=== PATIENT | male | born 1965 | race Caucasian/White ===

== ENCOUNTER 2024-07-30 14:32 | Inpatient (IN) | payer BC, SELFPAY ==
[2024-07-30 12:08] VITALS: BP 154/90
--- NOTE | 2024-07-30 12:33 | ED.GENMED ---
History of Present Illness
<Aurea Sanches PA-C - Last Filed: 07/30/24 14:39>
General
Chief Complaint: Skin Problem
Source: patient
Time Seen by Provider: 07/30/24 12:15
History of Present Illness
History of Present Illness:
58yoM with a history of renal cell carcinoma s/p partial L nephrectomy in 2021 currently in remission presenting for evaluation of right leg redness. Patient started to develop chills 3 days ago and spiked a fever of 102. The symptoms continued
the next day. He denies any fevers over the past 48 hours. He noticed some erythema to his right groin late yesterday evening. He then noticed new redness to the right lower leg about 2 to 3 hours ago which seems to be gradually worsening. He
was seen at his PCP office this morning for evaluation and he was sent to the ED for evaluation. Patient reports pain in the right leg. No chest pain or shortness of breath. Of note, patient underwent a right inguinal lymph node excisional biopsy
in May 2023. He developed a postoperative fluid collection which required drain placement.
Phy Exam
<Aurea Sanches PA-C - Last Filed: 07/30/24 14:39>
General Physical Exam
General Presentation: well appearing and no apparent distress
General age: appears stated age
General Skin: warm and dry
General Habitus: normal
General Mental: alert
[place] Coma Scale
Eye Opening: Spontaneous
Verbal Response: Oriented
Motor Response: Obeys Commands
GCS Total Score: 15
Musculoskeletal Exam
Musculoskeletal Exam: full ROM
Skin Exam
Skin Exam: warm/dry and erythema (Erythema noted to the R inner thigh which extends into the lower leg. Circumferential erythema and warmth to the calf. No palpable fluid collection or fluctuance in the groin. No crepitus or pain out of proportion. )
Psychiatric Exam
Psychiatric Exam: normal mood/affect
Course
<Aurea Sanches PA-C - Last Filed: 07/30/24 14:39>
Orders/Labs/Results
Orders:
Orders
07/30/24 12:31
Venous Doppler Lwr Ext Rt [US Periph Venous LOWER Ext RT] Urgent
Comment:
Reason For Exam: R leg pain, redness
07/30/24 12:35
Complete Blood Count/With Diff Urgent
Comprehensive Metabolic Panel Urgent
Lactate Level [Lactic Acid] Urgent
PTT Urgent
Prothrombin Time Urgent
07/30/24 13:31
Piperacillin/Tazo 3.375 Gram [Zosyn] 3.375 gram in 50 ml IV NOW
07/30/24 13:40
Vancomycin [Vancocin] 2,000 mg 0.9% Sodium Chloride 500 ml [Nss] 500 ml IV NOW
07/30/24 13:57
Admit/Transfer Patient As Directed
Co-Sign Provider:
Level of Care: Inpatient admission
Assign to:: Medical/Surgical
Physician / Group: [email or web address]
Diagnosis: Prgressive cellultis of Rt Pawel complicated by lyphangitis
Reason for Hospitalization: Prgressive cellultis of Rt Pawel complicated by lyphangitis
Expected length of stay greater than two midnights?: Yes
ELOS- Estimated Length of Stay in days: 3
I certify the patient meets the requirements for IP care: Yes
07/30/24 13:59
Code Status As Directed
Resuscitation Status: Full Code
Abnormal Lab Results
07/30/24
12:35
RBC 4.23 L 10^6/uL
(4.70-6.10)
Hct 36.4 L %
(39.0-52.0)
MPV 10.9 H fL
(7.4-10.4)
Abs Immat Gran (auto) 0.1 H 10^3/uL
(0-0.05)
Absolute Lymphs (auto) 0.4 L 10^3/uL
(1.2-3.4)
Immature Gran % 0.9 H %
(0-0.5)
Neutrophils % 83.4 H %
(42.2-75.2)
Lymphocytes % 6.2 L %
(20.5-51.1)
APTT 39.6 H Sec
(23.4-35.0)
Sodium 126 L mmol/L
(135-145)
Chloride 93 L mmol/L
(98-107)
BUN 33 H mg/dl
(9-20)
Glucose 108 H mg/dl
(70-99)
Calcium 7.9 L mg/dl
(8.4-10.2)
AST 64 H U/L
(17-59)
Alkaline Phosphatase 198 H U/L
(38-126)
Total Protein 6.1 L g/dl
(6.3-8.2)
Albumin 3.1 L g/dl
(3.5-5.0)
07/30/24 12:35
07/30/24 12:35
Vital Signs
Initial and Last Documented VS:
Initial Vital Signs
Temp Pulse Resp BP Pulse Ox
98.1 F 84 16 154/90 98
07/30/24 12:08 07/30/24 12:08 07/30/24 12:08 07/30/24 12:08 07/30/24 12:08
Last Documented Vital Signs
Temp Pulse Resp BP Pulse Ox
98.4 F 85 17 151/94 99
07/30/24 14:00 07/30/24 14:00 07/30/24 14:00 07/30/24 14:00 07/30/24 14:00
<Babar Andrew MD - Last Filed: 07/30/24 13:36>
Orders/Labs/Results
Orders:
Orders
07/30/24 12:31
Venous Doppler Lwr Ext Rt [US Periph Venous LOWER Ext RT] Urgent
Comment:
Reason For Exam: R leg pain, redness
07/30/24 12:35
Complete Blood Count/With Diff Urgent
Comprehensive Metabolic Panel Urgent
Lactate Level [Lactic Acid] Urgent
PTT Urgent
Prothrombin Time Urgent
07/30/24 13:31
Piperacillin/Tazo 3.375 Gram [Zosyn] 3.375 gram in 50 ml IV NOW
07/30/24 13:40
Vancomycin [Vancocin] 2,000 mg 0.9% Sodium Chloride 500 ml [Nss] 500 ml IV NOW
07/30/24 13:57
Admit/Transfer Patient As Directed
Co-Sign Provider:
Level of Care: Inpatient admission
Assign to:: Medical/Surgical
Physician / Group: [email or web address]
Diagnosis: Prgressive cellultis of Rt Pawel complicated by lyphangitis
Reason for Hospitalization: Prgressive cellultis of Rt Pawel complicated by lyphangitis
Expected length of stay greater than two midnights?: Yes
ELOS- Estimated Length of Stay in days: 3
I certify the patient meets the requirements for IP care: Yes
07/30/24 13:59
Code Status As Directed
Resuscitation Status: Full Code
Abnormal Lab Results
07/30/24
12:35
RBC 4.23 L 10^6/uL
(4.70-6.10)
Hct 36.4 L %
(39.0-52.0)
MPV 10.9 H fL
(7.4-10.4)
Abs Immat Gran (auto) 0.1 H 10^3/uL
(0-0.05)
Absolute Lymphs (auto) 0.4 L 10^3/uL
(1.2-3.4)
Immature Gran % 0.9 H %
(0-0.5)
Neutrophils % 83.4 H %
(42.2-75.2)
Lymphocytes % 6.2 L %
(20.5-51.1)
APTT 39.6 H Sec
(23.4-35.0)
Sodium 126 L mmol/L
(135-145)
Chloride 93 L mmol/L
(98-107)
BUN 33 H mg/dl
(9-20)
Glucose 108 H mg/dl
(70-99)
Calcium 7.9 L mg/dl
(8.4-10.2)
AST 64 H U/L
(17-59)
Alkaline Phosphatase 198 H U/L
(38-126)
Total Protein 6.1 L g/dl
(6.3-8.2)
Albumin 3.1 L g/dl
(3.5-5.0)
07/30/24 12:35
07/30/24 12:35
Vital Signs
Initial and Last Documented VS:
Initial Vital Signs
Temp Pulse Resp BP Pulse Ox
98.1 F 84 16 154/90 98
07/30/24 12:08 07/30/24 12:08 07/30/24 12:08 07/30/24 12:08 07/30/24 12:08
Last Documented Vital Signs
Temp Pulse Resp BP Pulse Ox
98.4 F 85 17 151/94 99
07/30/24 14:00 07/30/24 14:00 07/30/24 14:00 07/30/24 14:00 07/30/24 14:00
Torrilt;Aurea Sanches PA-C - Last Filed: 07/30/24 14:39>
MDM/Problems Addressed
Differential Diagnosis Includes:
58yoM here with R groin and leg swelling. Noticed the groin redness last night which has now spread to the calf 2-3 hours prior to arrival. Fever/chills 2 days ago but none since. Hx of prior inguinal node excisional biopsy last year with postop
fluid collection requiring drain placement. Suggestion patient is afebrile and hemodynamically stable. He is well-appearing and nontoxic. There is erythema noted to the right inner thigh which extends medially into the lower leg. There is
circumferential erythema to the calf with tenderness. No fluctuance, crepitus, or pain out of proportion on exam. Differential diagnosis includes but is not limited to: Cellulitis, abscess, DVT, doubt NSTI
Initial ED plan: Check CBC, CMP, lactate, coags, and venous duplex.
<Aurea Sanches PA-C - Last Filed: 07/30/24 14:39>
*Critical Care Note
Total Time (30-74mins, 75-104mins- exclusive of procedures): Not Applicable
<Aurea Sanches PA-C - Last Filed: 07/30/24 14:39>
Update Note
Update Note:
White count and lactate are normal. Hyponatremia noted with a sodium of 126. Venous duplex is negative for DVT. No fluid collection on ultrasound but lymphadenopathy is present. Given rapid progression of erythema, IV antibiotics ordered and he
was admitted for further management.
ED Attending Note
<Aurea Sanches PA-C - Last Filed: 07/30/24 14:39>
-
Portions of this chart may have been created with voice recognition software.� Occasional wrong word or��sound alike� substitutions may have occurred due to the inherent limitations of voice recognition software.
<Babar Andrew MD - Last Filed: 07/30/24 13:36>
ED Attending Note
Patient seen and examined by attending physician: Yes
ED Attending Note:
I have seen and evaluated the patient with a occh-ir-lork encounter. I have spoken to the advance practicer provider and involved in the medical history, the physical exam, medical decision making.
Evaluation and management service: agree unless noted differently below.
Results interpretation: agree unless noted differently below.
Focused HPI: 58-year-old male with past medical history of lymphoma status post lymph node resection in the right leg with subsequent surgical site infection and wound (June 2023) who presents to the ER today for evaluation of right leg pain,
redness, swelling. Patient reports that he had a fever for 24 hours on with a Tmax of 102 �F. He says that he thought it might be a viral illness because on Thursday fever had resolved but yesterday evening he started to notice some aching
pain in his right leg and over the past 24 hours has had progression of erythema in the right leg. Initially started in the right thigh then progressed to the right lower leg. He denies any trauma. He denies any chest pain, shortness of breath.
Denies any history of DVT/PE. Denies any other complaints.
Physical exam: Awake alert, oriented. Hypertensive but otherwise normal vitals�notably afebrile. He has edema in the entire right lower extremity; he has erythema, warmth, tenderness to the touch in the right inner thigh extending from the
inguinal crease down just proximal to the knee; he has circumferential erythema from the level about the tibial tuberosity on the right leg down towards the ankle, warmth, tenderness to the touch; no crepitus in the leg, no area of fluctuance; good
palpable pulse right lower extremity
Medical Decision Makin-year-old male presents for evaluation of pain, redness, swelling right lower leg progressing over the past 24 hours�he also had a fever 2 days ago but this has since resolved. Vitals and exam as above. Labs sent off
including a CBC which showed no leukocytosis. He was sent for an ultrasound of the right lower extremity rule out DVT as well as to investigate for any signs of abscess�negative for DVT and no signs of abscess; he does have likely reactive
lymphadenopathy. Suspect likely an acute cellulitis. Given extent of the cellulitis and the relatively rapid progression we will plan to admit for treatment, will cover with IV antibiotics. Case discussed with hospitalist for admission.
Discharge Plan
Departure
Patient Disposition: Admit
Date of Disposition: 07/30/24
Time of Disposition: 13:32
Admit to doctor: Joey
Presentation/result/management discussed w/ accepting MD/DO: Hospitalist
Discharge Problem:
Cellulitis
Interventions
Interventions:
*Risk Screen - Suicide Last Done: 07/30/24 12:08
*General Assessment Last Done: 07/30/24 12:08
*Neglect/Abuse Screening Last Done: 07/30/24 12:08
ED- Fall Risk Assessment Last Done: 07/30/24 12:39
*ED COVID-19 Vaccine History Last Done: 07/30/24 12:40
ED-Skin Assessment Last Done: 07/30/24 12:40
[2024-07-30 12:39] VITALS: BMI 32.6
[2024-07-30 13:23] LABS: % Basophils 0.6 % (0-2); % Eosinophils 0.1 % (0-6); % Immature Granulocytes 0.9 % (0-0.5); % Lymphocytes 6.2 % (20.5-51.1); % Monocytes 8.8 % (1.7-9.3); % Neutrophils 83.4 % (42.2-75.2); Absolute Immature Granulocytes 0.1 10^3/uL (0-0.05); Absolute Lymphocytes 0.4 10^3/uL (1.2-3.4); Absolute Monocytes 0.6 10^3/uL (0.1-0.6); Absolute Neutrophils 5.8 10^3/uL (1.4-6.5); Hematocrit 36.4 % (39.0-52.0); Mean Corp Hgb Conc. 35.7 g/dL (33.0-37.0); Mean Corpuscular Hgb 30.7 pg (27.0-31.0); Mean Corpuscular Volume 86.1 fL (80.0-94.0); Mean Platelet Volume 10.9 fL (7.4-10.4); Nucleated Red Blood Cells % 0 % (-); Platelet Count 153 10^3/uL (130-400); Red Blood Cell Count 4.23 10^6/uL (4.70-6.10); Red Cell Dist. Width 13.1 % (11.5-14.5)
[2024-07-30 13:35] LABS: INR 1.09; PT 13.9 Sec (11.4-14.6)
[2024-07-30 13:36] LABS: APTT 39.6 Sec (23.4-35.0)
[2024-07-30 13:39] LABS: Lactic Acid 1.2 mmol/L (0.7-2.0)
[2024-07-30] MEDS: ZOSYN 50 IV (13:39)
[2024-07-30 13:40] LABS: ALT (SGPT) 32 U/L (0-50); AST (SGOT) 64 U/L (17-59); Albumin 3.1 g/dl (3.5-5.0); Alkaline Phosphatase 198 U/L (38-126); Blood Urea Nitrogen 33 mg/dl (9-20); Calcium 7.9 mg/dl (8.4-10.2); Carbon Dioxide 25 mmol/L (22-30); Chloride 93 mmol/L (98-107); Estimated Creatinine Clearance 89 ml/min; Glucose 108 mg/dl (70-99); Potassium 4.1 mmol/L (3.5-5.1); Sodium 126 mmol/L (135-145); Total Bilirubin 0.7 mg/dl (0.2-1.3); Total Protein 6.1 g/dl (6.3-8.2); eGFR > 60.00
--- NOTE | 2024-07-30 13:45 | HPS.HSE ---
Family Physician
-
Family Physician: Jairo Mcneill
Chief Complaint
-
right leg redness
History of Present Illness
58M HX RCCa s/p partial Lt necrectomy, preserved renal function seen at ER for evalaution of Rt Leg redness.
- also noticed some erythema and pain to his right groin late yesterday evening and progressive worsening
- associated with chills 3 days ago and spiked a fever of 102.
- No fever for last 48Hrs
seen at his PCP office this morning for evaluation and he was sent to the ED for evaluation.
Of note, s/p right inguinal lymph node excisional biopsy in May 2023.
He developed a postoperative fluid collection which required drain placement.
Medical History
Past Medical History
Past Medical History: Reports Cancer (Renl cell CA s/p partial Lt nephrectomy 2021 )
Past Surgical History: Reports Other (s/p partial Lt nephrectomy 2021 )
Social History
Tobacco: Non-smoker
Alcohol: None
Family History
Family History: Not pertinent
Allergies / Home Medications
Allergies reflects when Allergies were last updated in [facility].
Home Medications with original date entered in [facility]
Allergy/Medication List:
Allergies
Allergy/AdvReac Type Severity Reaction Status Date / Time
No Known Allergies Allergy Verified 07/30/24 12:08
Home Medications
acetaminophen 325 mg tablet 650 mg (2 x 325 mg) PO Q6HPRN PRN mild pain #14 tabs 05/28/23
furosemide 20 mg tablet (Lasix) 20 mg PO BID 07/30/24
Review of Systems
-
Constitutional: Reports No Symptoms
EENT: Reports No Symptoms
Respiratory: Reports No Symptoms
Cardiac: Reports No Symptoms
Abdomen/GI: Reports No Symptoms
: Reports No Symptoms
Musculoskeletal: Reports See HPI
Skin: Reports See HPI
Neurological: Reports No Symptoms
Endocrine: Reports No Symptoms
Hematologic/Lymphatic: Reports No Symptoms
Psych: Reports No Symptoms
Physical Exam
Vital Signs
Vital Signs
Temp Pulse Resp BP Pulse Ox
98.1 F 84 16 154/90 98
07/30/24 12:08 07/30/24 12:08 07/30/24 12:08 07/30/24 12:08 07/30/24 12:08
Physical Exam
Skin: Other (Erythema @ R inner thigh which extends into the lower leg. Circumferential erythema with warmth to the calf. No palpable fluid collection or fluctuance in the groin. No crepitus or pain out of proportion)
Laboratory Results
-
07/30/24 12:35
07/30/24 12:35
Laboratory Results
PT 13.9 Sec (11.4-14.6) 07/30/24 12:35
INR 1.09 07/30/24 12:35
APTT 39.6 Sec (23.4-35.0) H 07/30/24 12:35
Lactic Acid 1.2 mmol/L (0.7-2.0) 07/30/24 12:35
Total Bilirubin 0.7 mg/dl (0.2-1.3) 07/30/24 12:35
AST 64 U/L (17-59) H 07/30/24 12:35
ALT 32 U/L (0-50) 07/30/24 12:35
Alkaline Phosphatase 198 U/L (38-126) H 07/30/24 12:35
Data Reviewed
-
Ultrasound: Report Reviewed by me
Lab Data: Labs Reviewed by me
Impression/Plan
-
Vital Signs
Temp Pulse Resp BP Pulse Ox
98.1 F 84 16 154/90 98
07/30/24 12:08 07/30/24 12:08 07/30/24 12:08 07/30/24 12:08 07/30/24 12:08
Laboratory Tests
07/30/24
12:35
WBC 7.0
Sodium 126 L
Chloride 93 L
BUN 33 H
Creatinine 1.0
eGFR > 60.00
Lactic Acid 1.2
Alkaline Phosphatase 198 H
Albumin 3.1 L
US Rt Pawel
1. No sonographic evidence for right lower extremity deep venous thrombosis.
2. Mild diffuse subcutaneous edema and soft tissue swelling in the right lower leg (possibly cellulitis).
3. Right inguinal lymphadenopathy. Diagnostic possibilities are (1) reactive lymphadenopathy in the setting of right lower extremity cellulitis or (2) lymphoma.
ASSESSMENT & PLAN
Progressive cellulitis of Rt Pawel complicated by lymphangitis and at risk for sepsis
Right inguinal lymphadenopathy due to reactive lymphadenopathy/
Hemodynamically stable
No fever for last 48Hrs. nl WCC
No son evidence of DVT i Rt Leg
No record prior HX MRSA in micro data
HX L/N dissection at Rt groin
- s/p first doses of IV vanco and Zosyn at ER
- switch to IV Ancef - f/u clinical response
- To consider ID consult if no clinical response
Hyponatremia on Lasix
Mild azotemia
suspect mild dehydration
HX lasix of chr intermittent Rt Leg swelling since HX L/N dissection at Rt groin
- Held Lasix
- f/u Na in AM
HX HX RCCa s/p partial Lt nephrectomy in 2021
- preserved renal function
DVT Px: LMWH
Code: Full
IP MS
[2024-07-30 14:00] VITALS: BP 151/94
[2024-07-30] MEDS: VANCOCIN 540 MG IV (14:14)
[2024-07-30 15:30] VITALS: BP 160/91
[2024-07-30 15:48] VITALS: BMI 31.2
[2024-07-30] MEDS: NSS 1000 IV (15:57)
[2024-07-30] MEDS: ANCEF 10 IV ×2 (15:58→23:54)
--- NOTE | 2024-07-30 16:37 | PTCARENOTE ---
Pt admission and assessment done after arrival to unit at aprox 1535. Pt's at bedside. IV vanco infusing through RAC. Pt admitted with cellulitis from right groin down to right ankle with significant swelling noted. Pt with 7/10 pain to the
right leg but does not want any pain medication at this time. Pt will order dinner. Advised patient to ring for any assistance.
[2024-07-30] MEDS: LOVENOX 40 MG SC (18:14)
[2024-07-30 23:00] VITALS: BP 148/94
[2024-07-31 06:00] VITALS: BMI 30.3
[2024-07-31 07:00] VITALS: BP 155/85
[2024-07-31 07:03] LABS: Hematocrit 35.4 % (39.0-52.0); Hemoglobin 12.3 g/dL (13.0-18.0); Mean Corp Hgb Conc. 34.7 g/dL (33.0-37.0); Mean Corpuscular Hgb 30.4 pg (27.0-31.0); Mean Corpuscular Volume 87.4 fL (80.0-94.0); Mean Platelet Volume 11.4 fL (7.4-10.4); Platelet Count 161 10^3/uL (130-400); Red Blood Cell Count 4.05 10^6/uL (4.70-6.10); Red Cell Dist. Width 13.2 % (11.5-14.5); White Blood Cell Count 7.9 10^3/uL (4.8-10.8)
[2024-07-31 07:32] LABS: Blood Urea Nitrogen 24 mg/dl (9-20); Calcium 7.1 mg/dl (8.4-10.2); Carbon Dioxide 21 mmol/L (22-30); Chloride 99 mmol/L (98-107); Estimated Creatinine Clearance 101 ml/min; Glucose 107 mg/dl (70-99); Potassium 3.3 mmol/L (3.5-5.1); Sodium 129 mmol/L (135-145); eGFR > 60.00
[2024-07-31 08:26] VITALS: BP 160/91
[2024-07-31] MEDS: ANCEF 10 IV ×2 (08:58→15:22)
--- NOTE | 2024-07-31 10:50 | CM ---
CM met with pt bedside
Pt resides with his spouse in a 2SH with 1STE, 13 steps up to second floor
Pt is independent with his ADLs, no DMEs
Financially secure
PCP- Jairo Mcneill
Rx- Viviana Sandhu
Discharge Disposition- home, no needs anticipated
--- NOTE | 2024-07-31 11:26 | W.PN.HOSP.TC ---
Today's Communication/Plan
-
IV abx
replete kcl
monitor Na and restart lasix in am
Assessment / Plan
Assessment / Plan
Progressive cellulitis of Rt Pawel complicated by lymphangitis
Right inguinal lymphadenopathy due to reactive lymphadenopathy/
No son evidence of DVT i Rt Leg
No record prior HX MRSA in micro data
HX L/N dissection at Rt groin
- s/p first doses of IV vanco and Zosyn at ER
- switch to IV Ancef - f/u clinical response
- Hold further IV lasix.
Hyponatremia on Lasix
Mild azotemia
suspect mild dehydration
HX lasix of chr intermittent Rt Leg swelling since HX L/N dissection at Rt groin
- Held Lasix. Na improved to 129.
- sodium improved. with hx of chronic lymphedema in RLE-DC further IVF. Restart lasix in am depending on sodium
HX HX RCCa s/p partial Lt nephrectomy in 2021
- preserved renal function
DVT Px: LMWH
Code: Full
Anticipated Discharge: > 48 hours
Subjective/Interval History
-
Date of Service: July 31, 2024
states of RLE pain
Objective Data
-
Labs:
Laboratory Results
07/31/24
06:15
WBC 7.9
Hgb 12.3 L
Hct 35.4 L
Plt Count 161
Sodium 129 L
Potassium 3.3 L
Chloride 99
Carbon Dioxide 21 L
BUN 24 H
Creatinine 0.9
Glucose 107 H
Calcium 7.1 L
Vital Signs:
Vital Signs
Temp Pulse Resp BP Pulse Ox
99.4 F 83 14 160/91 100
07/31/24 08:26 07/31/24 08:26 07/31/24 08:26 07/31/24 08:26 07/31/24 08:26
I&O
07/30/24 07/31/24 08/01/24
06:59 06:59 06:59
Intake Total 480 / 480
Output Total 3300 / 3300
Balance -2820 / -2820
Physical Exam
-
General: Well Developed and No Apparent Distress
HEENT: Normocephalic, Atraumatic and Moist Mucous Membranes
Respiratory: Clear to Auscultation
Cardiac: Regular Rhythm and S1/S2; Negative Murmur, Rub or Gallop
GI: Soft, Nontender, Nondistended and Normal Bowel Sounds; Negative Organomegaly
Rectal: Deferred by Provider
Musculoskeletal: No Clubbing, No Cyanosis and No Edema
Skin: Rash (R groin trending down to ankle. TTP. )
Neuro: Awake, Alert, Oriented, AO x 3, No Motor Deficits and Nonfocal/Grossly Intact
Psych: Calm
Data Reviewed
-
Total Time Spent with Patient (in minutes): 56
[2024-07-31] MEDS: KCL 40 MEQ PO (12:56)
[2024-07-31 15:46] VITALS: BP 139/79
[2024-07-31] MEDS: LOVENOX 40 MG SC (17:04)
[2024-07-31] MEDS: TYLENOL 650 MG PO (19:42)
[2024-07-31 23:21] VITALS: BP 141/73
[2024-08-01] MEDS: ANCEF 10 IV ×4 (00:17→23:21)
[2024-08-01 06:00] VITALS: BMI 30.5
[2024-08-01 07:41] LABS: % Basophils 0.3 % (0-2); % Eosinophils 0.2 % (0-6); % Immature Granulocytes 1.4 % (0-0.5); % Lymphocytes 5.6 % (20.5-51.1); % Monocytes 10.2 % (1.7-9.3); % Neutrophils 82.3 % (42.2-75.2); Absolute Immature Granulocytes 0.1 10^3/uL (0-0.05); Absolute Lymphocytes 0.5 10^3/uL (1.2-3.4); Absolute Neutrophils 7.8 10^3/uL (1.4-6.5); Hematocrit 37.1 % (39.0-52.0); Hemoglobin 13.4 g/dL (13.0-18.0); Mean Corp Hgb Conc. 36.1 g/dL (33.0-37.0); Mean Corpuscular Hgb 31.5 pg (27.0-31.0); Mean Corpuscular Volume 87.3 fL (80.0-94.0); Mean Platelet Volume 11.4 fL (7.4-10.4); Nucleated Red Blood Cells % 0 % (-); Platelet Count 148 10^3/uL (130-400); Red Blood Cell Count 4.25 10^6/uL (4.70-6.10); Red Cell Dist. Width 13.1 % (11.5-14.5); White Blood Cell Count 9.4 10^3/uL (4.8-10.8)
[2024-08-01 07:44] VITALS: BP 147/87
[2024-08-01] MEDS: TYLENOL 650 MG PO ×2 (08:03→21:00)
[2024-08-01 08:14] LABS: Blood Urea Nitrogen 24 mg/dl (9-20); Calcium 7.6 mg/dl (8.4-10.2); Carbon Dioxide 22 mmol/L (22-30); Chloride 98 mmol/L (98-107); Estimated Creatinine Clearance 114 ml/min; Glucose 107 mg/dl (70-99); Potassium 3.5 mmol/L (3.5-5.1); Sodium 130 mmol/L (135-145); eGFR > 60.00
[2024-08-01 15:33] VITALS: BP 162/80
--- NOTE | 2024-08-01 16:11 | CM ---
CM reviewed chart, patient remains on IV antibiotics. CM will continue to follow for all discharge planning needs.
Plan; home no needs likely.
--- NOTE | 2024-08-01 16:50 | W.PN.HOSP.TC ---
Today's Communication/Plan
-
continue Ancef
Assessment / Plan
Assessment / Plan
Progressive cellulitis of Rt Pawel complicated by lymphangitis
Right inguinal lymphadenopathy due to reactive lymphadenopathy/clonal B lymphocytes
No sono evidence of DVT i Rt Leg
No record prior HX MRSA in micro data
HX L/N dissection at Rt groin
- s/p first doses of IV vanco and Zosyn at ER
- switch to IV Ancef - f/u clinical response
- change Lasix to oral
Hyponatremia on Lasix
better Na 126-->129-->130
Mild azotemia
suspect mild dehydration
HX lasix of chr intermittent Rt Leg swelling since HX L/N dissection at Rt groin
- sodium improved. with hx of chronic lymphedema in RLE-DC further IVF.
HX HX RCCa s/p partial Lt nephrectomy in 2021
- preserved renal function
Consider ID consult pending progression
DVT Px: LMWH
Code: Full
Anticipated Discharge: 24 - 48 hours
Subjective/Interval History
-
Date of Service: August 01, 2024
Still with Rt leg pain, but pt believes improving
Objective Data
-
Labs:
Laboratory Results
08/01/24
07:00
WBC 9.4
Hgb 13.4
Hct 37.1 L
Plt Count 148
Sodium 130 L
Potassium 3.5
Chloride 98
Carbon Dioxide 22
BUN 24 H
Creatinine 0.8
Glucose 107 H
Calcium 7.6 L
Vital Signs:
Vital Signs
Temp Pulse Resp BP Pulse Ox
97.8 F 74 20 162/80 100
08/01/24 15:33 08/01/24 15:33 08/01/24 15:33 08/01/24 15:33 08/01/24 15:33
I&O
07/31/24 08/01/24 08/02/24
06:59 06:59 06:59
Intake Total 480 / 480 240 / 240
Output Total 3300 / 3300 850 / 850
Balance -2820 / -2820 -610 / -610
Review of Systems
-
History Source: Patient
Constitutional: Denies Fever
EENT: Reports No Symptoms Reported
Respiratory: Reports No Symptoms
Cardiac: Reports No Symptoms
Abdomen/GI: Reports No Symptoms
Musculoskeletal: Reports No Symptoms
Skin: Reports Rash
Physical Exam
-
General: Well Developed and No Apparent Distress
HEENT: Normocephalic, Atraumatic and Moist Mucous Membranes
Respiratory: Clear to Auscultation
Cardiac: Regular Rhythm and S1/S2; Negative Murmur, Rub or Gallop
GI: Soft, Nontender, Nondistended and Normal Bowel Sounds; Negative Organomegaly
Rectal: Deferred by Provider
Musculoskeletal: No Clubbing, No Cyanosis and No Edema
Skin: Rash (R groin trending down to ankle. TTP. )
Neuro: Awake, Alert, Oriented, AO x 3, No Motor Deficits and Nonfocal/Grossly Intact
Psych: Calm
[2024-08-01] MEDS: LASIX 20 MG PO (17:04)
[2024-08-01] MEDS: LOVENOX 40 MG SC (17:04)
[2024-08-01 18:48] LABS: Hepatitis C Antibody Negative (Negative)
[2024-08-01 23:44] VITALS: BP 124/71
[2024-08-02 06:00] VITALS: BMI 30.5
[2024-08-02 07:44] VITALS: BP 155/80
[2024-08-02] MEDS: ANCEF 10 IV ×2 (07:57→16:39)
[2024-08-02] MEDS: LASIX 20 MG PO ×2 (07:58→16:39)
[2024-08-02 08:08] LABS: % Basophils 0.6 % (0-2); % Eosinophils 0.7 % (0-6); % Immature Granulocytes 2.2 % (0-0.5); % Lymphocytes 6.6 % (20.5-51.1); % Monocytes 8.5 % (1.7-9.3); % Neutrophils 81.4 % (42.2-75.2); Absolute Basophils 0.1 10^3/uL (0-0.2); Absolute Eosinophils 0.1 10^3/uL (0-0.7); Absolute Immature Granulocytes 0.2 10^3/uL (0-0.05); Absolute Lymphocytes 0.7 10^3/uL (1.2-3.4); Absolute Monocytes 0.8 10^3/uL (0.1-0.6); Hematocrit 34.8 % (39.0-52.0); Hemoglobin 12.7 g/dL (13.0-18.0); Mean Corp Hgb Conc. 36.5 g/dL (33.0-37.0); Mean Corpuscular Hgb 32.2 pg (27.0-31.0); Mean Corpuscular Volume 88.1 fL (80.0-94.0); Mean Platelet Volume 11.7 fL (7.4-10.4); Nucleated Red Blood Cells % 0 % (-); Platelet Count 180 10^3/uL (130-400); Red Blood Cell Count 3.95 10^6/uL (4.70-6.10); Red Cell Dist. Width 13.1 % (11.5-14.5); White Blood Cell Count 9.8 10^3/uL (4.8-10.8)
[2024-08-02] MEDS: TYLENOL 650 MG PO ×2 (08:08→16:39)
[2024-08-02 08:25] LABS: Blood Urea Nitrogen 22 mg/dl (9-20); Calcium 7.4 mg/dl (8.4-10.2); Carbon Dioxide 24 mmol/L (22-30); Chloride 99 mmol/L (98-107); Estimated Creatinine Clearance > 125 ml/min; Glucose 94 mg/dl (70-99); Sodium 133 mmol/L (135-145); eGFR > 60.00
[2024-08-02 09:28] LABS: Erythrocyte Sed Rate 53 mm/hour (0-20)
--- NOTE | 2024-08-02 10:33 | CON.ID ---
Consultation
-
Date/Time Consultation Requested: August 02, 2024 0738
Date/Time Consultation Performed: August 02, 2024 1035
Requesting Provider: Dr. Jairo Rodriguez
Performing Provider: Dr. Julia Harden
Reason for Consultation: Cellulitis
Chief Complaint / Past History
Chief Complaint
Right leg redness
History of Present Illness
58-year-old male with history of CLL/SLL diagnosed by right inguinal lymph node excisional biopsy May 2023 complicated by chronic right lower extremity edema for which he wears compression stockings. On Thursday morning 07/30, his right leg looked
normal. He then went grocery shopping without wearing his compression stocking. Upon return from shopping, he noted bright erythema right lower extremity from the ankle to the leg and streaking up to right groin. Leg was very swollen. He had
subjective fevers and chills 2 days prior to the leg redness. He admits to scratching his legs often. Patient presented to the ER same day July 30. He was started on cefazolin. DVT ruled out. Patient reports that the erythema has improved.
However his leg is still swollen. No other complaints.
Past History
Additional Past Medical History:
Renal cell cancer status post partial left nephrectomy 2021
CLL/SLL, right inguinal lymph node excisional biopsy May 2023
Right lower extremity lymphedema
Allergy History:
No Known Allergies Allergy (Verified 07/30/24 12:08)
Medications Reviewed: Yes
Current Antibiotics:
cefazolin d4
Social History
Tobacco: Non-Smoker
Alcohol: None
Drug: None
Personal:
Living: With Family (and 1 dog)
Employment: Employed (IT)
Family History
Family History: Not Pertinent
Review of Systems
Review of Systems
General: Negative Change in Appetite
HEENT: Negative Sinus Problems, Headache or Pharyngitis
Cardiovascular: Negative Chest Pain or Dyspnea
Respiratory: Negative Dyspnea or Cough
Gasteroenterology: Other (no diarrhea); Negative Nausea or Vomiting
Genital / Urological: Negative Dysuria or Flank Pain
Endocrine: Negative Weakness
Neurological: Negative Headache or Dizziness
All systems: All other systems were reviewed and were negative
Vital Signs
Temp Pulse Resp BP Pulse Ox
97.8 F 77 18 155/80 100
08/02/24 07:44 08/02/24 07:44 08/02/24 07:44 08/02/24 07:44 08/02/24 07:44
Physical Exam
Physical Exam
Constitutional: No Acute Distress and Comfortable
Eyes: No Conjunctival Hemorrhage and Sclera Anicteric
Cardiovascular: Regular Rate and S1/S2
Pulmonary: Clear
Gastrointestinal: Soft, Non Tender, Non Distended and Normal Bowel Sounds
Genito-Urinary: Negative CVA Tenderness
Extremities: Edema (LLE: 3+ edema) and Erythema (patchy mild to mod erythema distal RLE and right groin, no significant warmth; + dry skin)
Musculoskeletal: Negative Spinal Tenderness
Neurological: AO x 3
Lab / Diagnostic Study Results
08/02/24 06:28
08/02/24 06:28
Abs Immat Gran (auto) 0.2 10^3/uL (0-0.05) H 08/02/24 06:28
Absolute Neuts (auto) 8.0 10^3/uL (1.4-6.5) H 08/02/24 06:28
Absolute Lymphs (auto) 0.7 10^3/uL (1.2-3.4) L 08/02/24 06:28
Absolute Monos (auto) 0.8 10^3/uL (0.1-0.6) H 08/02/24 06:28
Absolute Basos (auto) 0.1 10^3/uL (0-0.2) 08/02/24 06:28
Immature Gran % 2.2 % (0-0.5) H 08/02/24 06:28
Neutrophils % 81.4 % (42.2-75.2) H 08/02/24 06:28
Lymphocytes % 6.6 % (20.5-51.1) L 08/02/24 06:28
Monocytes % 8.5 % (1.7-9.3) 08/02/24 06:28
Eosinophils % 0.7 % (0-6) 08/02/24 06:28
Basophils % 0.6 % (0-2) 08/02/24 06:28
ESR 53 mm/hour (0-20) H 08/02/24 06:28
PT 13.9 Sec (11.4-14.6) 07/30/24 12:35
INR 1.09 07/30/24 12:35
Lactic Acid 1.2 mmol/L (0.7-2.0) 07/30/24 12:35
Assessment / Plan
# Acute RLE cellulitis
# hx RLE lymphedema due to right inguinal excisional LN biopsy (05/2023)
- Apply moisturizer
- COMPRESSION with Rodger-WRAP
- Elevate RLE
- Tomorrow, can transition cefazolin (d4) to cephalexin 1g po q8h through 08/08/24.
--- NOTE | 2024-08-02 10:56 | CM ---
Patient seen bedside.
Continue IV anbx
patient aware of CM availability should needs arise.
Plan: home no needs anticipated.
[2024-08-02] MEDS: LAC HYDRIN, AM LACTIN LOTION 1 APPLIC TOPICAL ×2 (11:42→20:57)
--- NOTE | 2024-08-02 11:57 | W.PN.HOSP.TC ---
Today's Communication/Plan
-
KCl supplement
recheck labs in AM
if cellulitis continues to improve, consider dc next 1-2 days
Assessment / Plan
Assessment / Plan
Progressive cellulitis of Rt Pawel complicated by lymphangitis
Right inguinal lymphadenopathy due to reactive lymphadenopathy/clonal B lymphocytes
No sono evidence of DVT i Rt Leg
No record prior HX MRSA in micro data
HX L/N dissection at Rt groin
- s/p first doses of IV vanco and Zosyn at ER
- switch to IV Ancef - f/u clinical response
- now on Lasix oral 20 mg bid
chronic RLE lymphedema post rt inguinal LN excision
Hyponatremia on Lasix
better Na 126-->129-->130-->133
Mild azotemia
suspect mild dehydration
HX lasix of chr intermittent Rt Leg swelling since HX L/N dissection at Rt groin
- sodium improved. with hx of chronic lymphedema in RLE-DC further IVF.
Hypokalemia from Lasix
3.3-->3.5-->3.0
will start K supplement and recheck tomorrow
HX HX RCCa s/p partial Lt nephrectomy in 2021
- preserved renal function
reviewed with Dr. Harden
DVT Px: LMWH
Code: Full
Anticipated Discharge: 24 - 48 hours
Subjective/Interval History
-
Date of Service: August 02, 2024
Still with leg pain
Objective Data
-
Labs:
Laboratory Results
08/02/24
06:28
WBC 9.8
Hgb 12.7 L
Hct 34.8 L
Plt Count 180 D
Sodium 133 L
Potassium 3.0 L
Chloride 99
Carbon Dioxide 24
BUN 22 H
Creatinine 0.7
Glucose 94
Calcium 7.4 L
Vital Signs:
Vital Signs
Temp Pulse Resp BP Pulse Ox
97.8 F 77 18 155/80 100
08/02/24 07:44 08/02/24 07:44 08/02/24 07:44 08/02/24 07:44 08/02/24 07:44
I&O
08/01/24 08/02/24 08/03/24
06:59 06:59 06:59
Intake Total 240 / 240 1080 / 1080
Output Total 850 / 850
Balance -610 / -610 1080 / 1080
Review of Systems
-
History Source: Patient
Constitutional: Denies Fever, Chills or Weakness
EENT: Reports No Symptoms Reported
Respiratory: Reports No Symptoms
Cardiac: Reports No Symptoms
Abdomen/GI: Reports No Symptoms
Musculoskeletal: Reports No Symptoms
Skin: Reports Rash
Neuro: Reports No Symptoms
Physical Exam
-
General: Well Developed and No Apparent Distress
HEENT: Normocephalic, Atraumatic and Moist Mucous Membranes
Respiratory: Clear to Auscultation
Cardiac: Regular Rhythm and S1/S2; Negative Murmur, Rub or Gallop
GI: Soft, Nontender, Nondistended and Normal Bowel Sounds; Negative Organomegaly
Rectal: Deferred by Provider
Musculoskeletal: No Clubbing, No Cyanosis and No Edema
Skin: Rash (R groin trending down to ankle. probably 25% better since yesterday)
Neuro: Awake, Alert, Oriented, AO x 3, No Motor Deficits and Nonfocal/Grossly Intact
Psych: Calm
[2024-08-02] MEDS: KCL 40 MEQ PO (12:19)
[2024-08-02 15:25] VITALS: BP 151/88
[2024-08-02] MEDS: LOVENOX 40 MG SC (16:39)
[2024-08-02] MEDS: KCL 20 MEQ PO (20:56)
[2024-08-02 23:30] VITALS: BP 148/79
[2024-08-03] MEDS: ANCEF 10 IV ×2 (00:16→07:44)
[2024-08-03] MEDS: TYLENOL 650 MG PO (00:17)
[2024-08-03 04:58] VITALS: BMI 30.6
[2024-08-03 07:26] VITALS: BP 162/86
[2024-08-03] MEDS: KCL 20 MEQ PO ×2 (07:44→20:07)
[2024-08-03] MEDS: LASIX 20 MG PO ×2 (07:44→17:19)
[2024-08-03] MEDS: LAC HYDRIN, AM LACTIN LOTION 1 APPLIC TOPICAL (07:46)
[2024-08-03 10:01] LABS: % Basophils 1.1 % (0-2); % Eosinophils 0.7 % (0-6); % Immature Granulocytes 3.4 % (0-0.5); % Lymphocytes 9.5 % (20.5-51.1); % Monocytes 6.2 % (1.7-9.3); % Neutrophils 79.1 % (42.2-75.2); Absolute Basophils 0.1 10^3/uL (0-0.2); Absolute Eosinophils 0.1 10^3/uL (0-0.7); Absolute Immature Granulocytes 0.3 10^3/uL (0-0.05); Absolute Lymphocytes 0.8 10^3/uL (1.2-3.4); Absolute Monocytes 0.5 10^3/uL (0.1-0.6); Absolute Neutrophils 6.8 10^3/uL (1.4-6.5); Hematocrit 40.1 % (39.0-52.0); Hemoglobin 13.9 g/dL (13.0-18.0); Mean Corp Hgb Conc. 34.7 g/dL (33.0-37.0); Mean Corpuscular Hgb 30.2 pg (27.0-31.0); Mean Corpuscular Volume 87.2 fL (80.0-94.0); Mean Platelet Volume 10.2 fL (7.4-10.4); Nucleated Red Blood Cells % 0 % (-); Platelet Count 324 10^3/uL (130-400); Red Cell Dist. Width 13.3 % (11.5-14.5); White Blood Cell Count 8.6 10^3/uL (4.8-10.8)
[2024-08-03 10:37] LABS: Blood Urea Nitrogen 19 mg/dl (9-20); Calcium 8.5 mg/dl (8.4-10.2); Carbon Dioxide 26 mmol/L (22-30); Chloride 100 mmol/L (98-107); Estimated Creatinine Clearance > 125 ml/min; Glucose 129 mg/dl (70-99); Sodium 137 mmol/L (135-145); eGFR > 60.00
--- NOTE | 2024-08-03 11:14 | CM ---
Patient seen bedside.
Patient stated leg looks and feels better.
Patient denies home care needs.
Plan: home no needs.
--- NOTE | 2024-08-03 12:25 | W.PN.HOSP.TC ---
Today's Communication/Plan
-
check MRSA nasal swab
continue Ancef
Assessment / Plan
Assessment / Plan
Progressive cellulitis of Rt Pawel complicated by lymphangitis
Right inguinal lymphadenopathy due to reactive lymphadenopathy/clonal B lymphocytes
No sono evidence of DVT i Rt Leg
No record prior HX MRSA in micro data
HX L/N dissection at Rt groin
- s/p first doses of IV vanco and Zosyn at ER
- switch to IV Ancef - f/u clinical response
initially greater improvement, will check MRSA nasal swab
- now back on Lasix oral 20 mg bid
chronic RLE lymphedema post rt inguinal LN excision
Hyponatremia on Lasix
better Na 126-->129-->130-->133
Mild azotemia
suspect mild dehydration
HX lasix of chr intermittent Rt Leg swelling since HX L/N dissection at Rt groin
- sodium improved. with hx of chronic lymphedema in RLE-DC further IVF.
Hypokalemia from Lasix
3.3-->3.5-->3.0-->4.0
started K supplement and is better
HX HX RCCa s/p partial Lt nephrectomy in 2021
- preserved renal function
reviewed with Dr. Harden 08/03
DVT Px: LMWH
Code: Full
Anticipated Discharge: 24 - 48 hours
Subjective/Interval History
-
Date of Service: August 03, 2024
Overall feeling better, but leg remains warm and tender
Objective Data
-
Labs:
Laboratory Results
08/03/24
09:18
WBC 8.6
Hgb 13.9
Hct 40.1
Plt Count 324 D
Sodium 137
Potassium 4.0 D
Chloride 100
Carbon Dioxide 26
BUN 19
Creatinine 0.7
Glucose 129 H
Calcium 8.5
Vital Signs:
Vital Signs
Temp Pulse Resp BP Pulse Ox
97.7 F 70 20 162/86 99
08/03/24 07:26 08/03/24 07:44 08/03/24 07:26 08/03/24 07:44 08/03/24 07:26
I&O
08/02/24 08/03/24 08/04/24
06:59 06:59 06:59
Intake Total 1080 / 1080 840 / 840
Balance 1080 / 1080 840 / 840
Review of Systems
-
History Source: Patient
Constitutional: Denies Fever, Chills or Weakness
EENT: Reports No Symptoms Reported
Respiratory: Reports No Symptoms
Cardiac: Reports No Symptoms
Abdomen/GI: Reports No Symptoms
Musculoskeletal: Reports No Symptoms
Skin: Reports Rash
Neuro: Reports No Symptoms
Physical Exam
-
General: Well Developed and No Apparent Distress
HEENT: Normocephalic, Atraumatic and Moist Mucous Membranes
Respiratory: Clear to Auscultation
Cardiac: Regular Rhythm and S1/S2; Negative Murmur, Rub or Gallop
GI: Soft, Nontender, Nondistended and Normal Bowel Sounds; Negative Organomegaly
Rectal: Deferred by Provider
Musculoskeletal: No Clubbing, No Cyanosis and No Edema
Skin: Rash (R groin trending down to ankle. minimal change past 24 hrs, certainly not worse)
Neuro: Awake, Alert, Oriented, AO x 3, No Motor Deficits and Nonfocal/Grossly Intact
Psych: Calm
[2024-08-03 15:01] VITALS: BP 140/79
--- NOTE | 2024-08-03 15:53 | W.PN.ID1 ---
Date of Service
Date of Service: August 03, 2024
Today's Communication
Change cefazolin to ceftriaxone.
Assessment / Plan
# Acute RLE cellulitis
# hx RLE lymphedema due to right inguinal excisional LN biopsy (05/2023)
- Leg with increased erythema with onset of RODGER-WRAP Compression.
- Hold Rodger-WRAP compression for now.
- Elevate RLE
- Suspect Streptococcal cellulitis.
Replace cefazolin with ceftriaxone.
- Follow clinically.
#Additional Past Medical History:
Renal cell cancer status post partial left nephrectomy 2021
CLL/SLL, right inguinal lymph node excisional biopsy May 2023
Right lower extremity lymphedema
Chief Complaint
-: Cellulitis
Subjective / Review of Systems
Leg better this am before RODGER-WRAP but got redder with compression.
Vital Signs / Physical Exam
Vital Signs
Vital Signs
Temp Pulse Resp BP Pulse Ox
97.8 F 74 17 140/79 99
08/03/24 15:01 08/03/24 15:01 08/03/24 15:01 08/03/24 15:01 08/03/24 15:01
Physical Exam
Constitutional: No Acute Distress and Comfortable
Extremities: Edema (RLE decreased edema) and Erythema (Erythema appears increased today ankle with streaking to medial groin, mildly warm)
Objective Data
Lab Data
Lab Results
08/03/24 09:18
08/03/24 09:18
ESR 53 mm/hour (0-20) H 08/02/24 06:28
PT 13.9 Sec (11.4-14.6) 07/30/24 12:35
INR 1.09 07/30/24 12:35
APTT 39.6 Sec (23.4-35.0) H 07/30/24 12:35
Estimated Creat Clear > 125 ml/min 08/03/24 09:18
Lactic Acid 1.2 mmol/L (0.7-2.0) 07/30/24 12:35
Total Bilirubin 0.7 mg/dl (0.2-1.3) 07/30/24 12:35
AST 64 U/L (17-59) H 07/30/24 12:35
ALT 32 U/L (0-50) 07/30/24 12:35
Alkaline Phosphatase 198 U/L (38-126) H 07/30/24 12:35
Most recent labs reviewed.
Micro Results:
08/03/24 14:35 MRSA Screen - Pending
Nose
[2024-08-03] MEDS: LOVENOX 40 MG SC (17:18)
[2024-08-03] MEDS: ROCEPHIN 2000 MG IV (17:19)
[2024-08-03] MEDS: STERILE WATER FOR INJECTION 20 ML IV (17:19)
[2024-08-03 23:20] VITALS: BP 159/89
[2024-08-04 05:30] VITALS: BMI 30.6
[2024-08-04 07:50] LABS: % Basophils 0.9 % (0-2); % Eosinophils 1.5 % (0-6); % Immature Granulocytes 4.6 % (0-0.5); % Lymphocytes 10.2 % (20.5-51.1); % Monocytes 7.5 % (1.7-9.3); % Neutrophils 75.3 % (42.2-75.2); Absolute Basophils 0.1 10^3/uL (0-0.2); Absolute Eosinophils 0.1 10^3/uL (0-0.7); Absolute Immature Granulocytes 0.4 10^3/uL (0-0.05); Absolute Lymphocytes 0.9 10^3/uL (1.2-3.4); Absolute Monocytes 0.7 10^3/uL (0.1-0.6); Absolute Neutrophils 6.5 10^3/uL (1.4-6.5); Hematocrit 37.2 % (39.0-52.0); Hemoglobin 12.9 g/dL (13.0-18.0); Mean Corp Hgb Conc. 34.7 g/dL (33.0-37.0); Mean Corpuscular Hgb 30.2 pg (27.0-31.0); Mean Corpuscular Volume 87.1 fL (80.0-94.0); Mean Platelet Volume 10.3 fL (7.4-10.4); Nucleated Red Blood Cells % 0 % (-); Platelet Count 342 10^3/uL (130-400); Red Blood Cell Count 4.27 10^6/uL (4.70-6.10); Red Cell Dist. Width 13.6 % (11.5-14.5); White Blood Cell Count 8.6 10^3/uL (4.8-10.8)
[2024-08-04] MEDS: KCL 20 MEQ PO (08:15)
[2024-08-04] MEDS: LASIX 20 MG PO ×2 (08:22→16:37)
[2024-08-04 08:26] VITALS: BP 148/79
[2024-08-04 08:32] LABS: Blood Urea Nitrogen 17 mg/dl (9-20); Calcium 7.9 mg/dl (8.4-10.2); Carbon Dioxide 20 mmol/L (22-30); Chloride 105 mmol/L (98-107); Estimated Creatinine Clearance 115 ml/min; Glucose 107 mg/dl (70-99); Potassium 4.8 mmol/L (3.5-5.1); Sodium 136 mmol/L (135-145); eGFR > 60.00
--- NOTE | 2024-08-04 12:30 | W.PN.ID1 ---
Date of Service
Date of Service: August 04, 2024
Today's Communication
Continue ceftriaxone.
Assessment / Plan
# Acute RLE cellulitis
# hx RLE lymphedema due to right inguinal excisional LN biopsy (05/2023)
- Suspect Streptococcal cellulitis - improving today
- Continue ceftriaxone.
- Resume DARRYL compression (not too tightly)
- Tomorrow, anticipate after dose of ceftriaxone, transition to amoxicillin 1g po tid.
#Additional Past Medical History:
Renal cell cancer status post partial left nephrectomy 2021
CLL/SLL, right inguinal lymph node excisional biopsy May 2023
Right lower extremity lymphedema
Chief Complaint
-: Cellulitis
Subjective / Review of Systems
No complaints.
Vital Signs / Physical Exam
Vital Signs
Vital Signs
Temp Pulse Resp BP Pulse Ox
97.8 F 78 18 148/79 98
08/04/24 08:26 08/04/24 08:26 08/04/24 08:26 08/04/24 08:26 08/04/24 08:26
Physical Exam
Constitutional: No Acute Distress
Extremities: Other (RLE: + edema, erythema decreased)
Objective Data
Lab Data
Lab Results
08/04/24 06:55
08/04/24 06:55
ESR 53 mm/hour (0-20) H 08/02/24 06:28
PT 13.9 Sec (11.4-14.6) 07/30/24 12:35
INR 1.09 07/30/24 12:35
APTT 39.6 Sec (23.4-35.0) H 07/30/24 12:35
Estimated Creat Clear 115 ml/min 08/04/24 06:55
Lactic Acid 1.2 mmol/L (0.7-2.0) 07/30/24 12:35
Total Bilirubin 0.7 mg/dl (0.2-1.3) 07/30/24 12:35
AST 64 U/L (17-59) H 07/30/24 12:35
ALT 32 U/L (0-50) 07/30/24 12:35
Alkaline Phosphatase 198 U/L (38-126) H 07/30/24 12:35
Most recent labs reviewed.
Micro Results:
08/03/24 14:35 MRSA Screen - Pending
Nose
Care Review
Plan reviewed with: Physician (Dr. Rodriguez)
--- NOTE | 2024-08-04 12:35 | CM ---
Patient seen bedside.
Dx cellulitis
Patient denies home care needs.
Plan: home no needs.
--- NOTE | 2024-08-04 15:37 | W.PN.HOSP.TC ---
Today's Communication/Plan
-
potential dc tomorrow
Assessment / Plan
Assessment / Plan
Progressive cellulitis of Rt Pawel complicated by lymphangitis
Right inguinal lymphadenopathy due to reactive lymphadenopathy/clonal B lymphocytes
No sono evidence of DVT Rt Leg
No record prior HX MRSA in micro data
HX L/N dissection at Rt groin
- s/p first doses of IV vanco and Zosyn at ER
- switch to IV Ancef - f/u clinical response
initially greater improvement, will check MRSA nasal swab
- now back on Lasix oral 20 mg bid
chronic RLE lymphedema post rt inguinal LN excision
Hyponatremia on Lasix
better Na 126-->129-->130-->133-->136
Mild azotemia
suspect mild dehydration
HX lasix of chr intermittent Rt Leg swelling since HX L/N dissection at Rt groin
- sodium improved. with hx of chronic lymphedema in RLE-DC further IVF.
Hypokalemia from Lasix
3.3-->3.5-->3.0-->4.0-->4.8
started K supplement and is better, will decrease to one daily
HX HX RCCa s/p partial Lt nephrectomy in 2021
- preserved renal function
reviewed with Dr. Harden 08/04
MRSA screen negative
Pt requested I complete FMLA form
If continues to improve, transition to Amox 1 gm tid tomorrow with dc to follow
DVT Px: LMWH
Code: Full
Anticipated Discharge: Within 24 hours
Subjective/Interval History
-
Date of Service: August 04, 2024
Rt leg still with discomfort, but is anxiously awaiting dc
Objective Data
-
Labs:
Laboratory Results
08/04/24
06:55
WBC 8.6
Hgb 12.9 L
Hct 37.2 L
Plt Count 342
Sodium 136
Potassium 4.8
Chloride 105
Carbon Dioxide 20 L
BUN 17
Creatinine 0.8
Glucose 107 H
Calcium 7.9 L
Vital Signs:
Vital Signs
Temp Pulse Resp BP Pulse Ox
97.8 F 78 18 148/79 98
08/04/24 08:26 08/04/24 08:26 08/04/24 08:26 08/04/24 08:26 08/04/24 08:26
I&O
08/03/24 08/04/24 08/05/24
06:59 06:59 06:59
Intake Total 840 / 840 1080 / 1080
Balance 840 / 840 1080 / 1080
Review of Systems
-
History Source: Patient
Constitutional: Denies Fever, Chills or Weakness
EENT: Reports No Symptoms Reported
Respiratory: Reports No Symptoms
Cardiac: Reports No Symptoms
Abdomen/GI: Reports No Symptoms
Musculoskeletal: Reports No Symptoms
Skin: Reports Rash
Neuro: Reports No Symptoms
Physical Exam
-
General: Well Developed and No Apparent Distress
HEENT: Normocephalic, Atraumatic and Moist Mucous Membranes
Respiratory: Clear to Auscultation
Cardiac: Regular Rhythm and S1/S2; Negative Murmur, Rub or Gallop
GI: Soft, Nontender, Nondistended and Normal Bowel Sounds; Negative Organomegaly
Rectal: Deferred by Provider
Musculoskeletal: No Clubbing, No Cyanosis and No Edema
Skin: Rash (R groin trending down to ankle.slow, but definite improvement past 24 hrs, )
Neuro: Awake, Alert, Oriented, AO x 3, No Motor Deficits and Nonfocal/Grossly Intact
Psych: Calm
[2024-08-04 16:05] VITALS: BP 132/82
[2024-08-04] MEDS: STERILE WATER FOR INJECTION 20 ML IV (16:38)
[2024-08-04] MEDS: ROCEPHIN 2000 MG IV (16:38)
[2024-08-04] MEDS: LOVENOX SC (16:55)
[2024-08-04 23:59] VITALS: BP 160/95
[2024-08-05] MEDS: KCL 20 MEQ PO (05:45)
[2024-08-05 06:00] VITALS: BMI 30.6
[2024-08-05 07:05] VITALS: BP 154/94
[2024-08-05] MEDS: LASIX 20 MG PO (08:04)
--- NOTE | 2024-08-05 10:34 | W.PN.ID1 ---
Date of Service
Date of Service: August 05, 2024
Today's Communication
After dose of ceftriaxone today, transition to amoxicillin 1g po tid through 08/12/24.
Assessment / Plan
# Acute RLE cellulitis - improving
# hx RLE lymphedema due to right inguinal excisional LN biopsy (05/2023)
- Suspect Streptococcal cellulitis - continues to improve.
- Continue compression modality.
- After dose of ceftriaxone today, transition to amoxicillin 1g po tid through 08/12/24.
#Additional Past Medical History:
Renal cell cancer status post partial left nephrectomy 2021
CLL/SLL, right inguinal lymph node excisional biopsy May 2023
Right lower extremity lymphedema.
Chief Complaint
-: Cellulitis
Subjective / Review of Systems
Leg is getting better.
Vital Signs / Physical Exam
Vital Signs
Vital Signs
Temp Pulse Resp BP Pulse Ox
97.4 F 81 20 154/94 99
08/05/24 07:05 08/05/24 07:05 08/05/24 07:05 08/05/24 07:05 08/05/24 07:05
Physical Exam
Constitutional: No Acute Distress and Comfortable
Extremities: Other (RLE: edema improving, erythyema decreased, warmth resolved)
Neurological: AO x 3
Objective Data
Lab Data
Lab Results
08/04/24 06:55
08/04/24 06:55
ESR 53 mm/hour (0-20) H 08/02/24 06:28
PT 13.9 Sec (11.4-14.6) 07/30/24 12:35
INR 1.09 07/30/24 12:35
APTT 39.6 Sec (23.4-35.0) H 07/30/24 12:35
Estimated Creat Clear 115 ml/min 08/04/24 06:55
Lactic Acid 1.2 mmol/L (0.7-2.0) 07/30/24 12:35
Total Bilirubin 0.7 mg/dl (0.2-1.3) 07/30/24 12:35
AST 64 U/L (17-59) H 07/30/24 12:35
ALT 32 U/L (0-50) 07/30/24 12:35
Alkaline Phosphatase 198 U/L (38-126) H 07/30/24 12:35
Most recent labs reviewed.
Micro Results:
08/03/24 14:35 MRSA Screen - Final
Nose No Methicillin Resistant Staphylococcus aureus isolated.
Care Review
Plan reviewed with: Physician (Dr. Rodriguez)
--- NOTE | 2024-08-05 11:13 | CM ---
Patient for d/c home today.
Spouse will transport.
Plan: home no need.
[2024-08-05] MEDS: STERILE WATER FOR INJECTION 20 ML IV (11:41)
[2024-08-05] MEDS: ROCEPHIN 2000 MG IV (11:41)
--- NOTE | 2024-08-05 12:37 | W.PN.HOSP.TC ---
Today's Communication/Plan
-
dc now
Assessment / Plan
Assessment / Plan
Progressive cellulitis of Rt Pawel complicated by lymphangitis
Right inguinal lymphadenopathy due to reactive lymphadenopathy/clonal B lymphocytes
No sono evidence of DVT Rt Leg
No record prior HX MRSA in micro data
HX L/N dissection at Rt groin
- s/p first doses of IV vanco and Zosyn at ER
- switch to IV Ancef -then started on daily Rocephin, cleared to change to oral by ID
initially greater improvement, will check MRSA nasal swab
- now back on Lasix oral 20 mg bid
chronic RLE lymphedema post rt inguinal LN excision
Hyponatremia on Lasix
better Na 126-->129-->130-->133-->136
Mild azotemia
suspect mild dehydration
HX lasix of chr intermittent Rt Leg swelling since HX L/N dissection at Rt groin
- sodium improved. with hx of chronic lymphedema in RLE-DC further IVF.
Hypokalemia from Lasix
3.3-->3.5-->3.0-->4.0-->4.8
started K supplement and is better, will decrease to one daily
HX HX RCCa s/p partial Lt nephrectomy in 2021
- preserved renal function
reviewed with Dr. Harden 08/05
MRSA screen negative
Pt requested I complete FMLA form and was completed
dc now
see dictated note
More than 30 minutes spent in discharge including
Final examination of the patient
Summarizing hospital stay
Instructions for continuing care to all relevant caregivers
Preparation of discharge records, prescriptions, and referral forms
Total time spent (in minutes): 45
DVT Px: LMWH
Code: Full
Anticipated Discharge: Today
Subjective/Interval History
-
Date of Service: August 05, 2024
Leg feels better, anxiously awaiting dc
Objective Data
-
Vital Signs:
Vital Signs
Temp Pulse Resp BP Pulse Ox
97.4 F 81 20 154/94 99
08/05/24 07:05 08/05/24 07:05 08/05/24 07:05 08/05/24 07:05 08/05/24 07:05
I&O
08/04/24 08/05/24 08/06/24
06:59 06:59 06:59
Intake Total 1080 / 1080
Balance 1080 / 1080
Review of Systems
-
History Source: Patient
Constitutional: Denies Fever, Chills or Weakness
EENT: Reports No Symptoms Reported
Respiratory: Reports No Symptoms
Cardiac: Reports No Symptoms
Abdomen/GI: Reports No Symptoms
Musculoskeletal: Reports No Symptoms
Skin: Reports Rash
Neuro: Reports No Symptoms
Physical Exam
-
General: Well Developed and No Apparent Distress
HEENT: Normocephalic, Atraumatic and Moist Mucous Membranes
Respiratory: Clear to Auscultation
Cardiac: Regular Rhythm and S1/S2; Negative Murmur, Rub or Gallop
GI: Soft, Nontender, Nondistended and Normal Bowel Sounds; Negative Organomegaly
Musculoskeletal: No Clubbing, No Cyanosis and No Edema
Skin: Rash (R groin trending down to ankle.slow, but definite improvement past 24 hrs, )
Neuro: Awake, Alert, Oriented, AO x 3, No Motor Deficits and Nonfocal/Grossly Intact
Psych: Calm
--- NOTE | 2024-08-05 12:52 | W.DS.TRANS ---
DC Summary - [employer]
-
Discharge Instructions:
Discharge Diagnosis/Procedures cellulitis
Diet Low Sodium
Activity No strenuous activity
Driving Restrictions Not until seen by your Dr
Bathing Restrictions None
Blood Work CBC, CMP in 1-2 weeks
Instructions:
Stand-Alone Forms:
Changes to Home Medications: Yes
Discharge Medications:
DC Medications w/original date entered in [employer]
acetaminophen 325 mg tablet 650 mg (2 x 325 mg) PO Q6HPRN PRN mild pain #14 tabs 05/28/23
furosemide 20 mg tablet (Lasix) 20 mg PO BID Fluid Retention/Swelling 07/30/24
amoxicillin 500 mg capsule 1,000 mg (2 x 500 mg) PO Q8H #60 caps 08/05/24
potassium chloride 20 mEq tablet,extended release(part/cryst) 20 meq PO DAILY AT 0700 #30 tabs 08/05/24
Home Medication Changes
Amoxicillin for infection and to take
Potassium regularly
Pending Results: No
[2024-08-05 13:08] VITALS: BP 160/78
== END 2024-08-05 13:29 | disposition home or self-care (01) | DRG 603 ==
LOC: 4 WEST ACU 14:32
PROVIDERS: Hospitalist; Physician Assistant; ADMITTING PHYSICIAN Internal Medicine; ATTENDING PHYSICIAN Internal Medicine; CONSULT PHYSICIAN Internal Medicine Infectious Disease; EMERGENCY PHYSICIAN Emergency Medicine; FAMILY PHYSICIAN Family Medicine
DX: L03.115 Cellulitis of right lower limb (principal); E87.1 Hypo-osmolality and hyponatremia; C91.11 Chronic lymphocytic leukemia of B-cell type in remission; M79.604 Pain in right leg; M79.89 Other specified soft tissue disorders; R60.0 Localized edema; E87.6 Hypokalemia; B95.5 Unspecified streptococcus as the cause of diseases classified elsewhere; I89.0 Lymphedema, not elsewhere classified; R79.89 Other specified abnormal findings of blood chemistry; E86.0 Dehydration; Z85.528 Personal history of other malignant neoplasm of kidney; Z85.72 Personal history of non-Hodgkin lymphomas; Z90.5 Acquired absence of kidney
CPT/HCPCS: 80048; 80053; 83605; 85025; 85027; 85610; 85652; 85730; 86803; 87070; 93971; 96365; 96366; 96367; 99284

== ENCOUNTER 2024-12-15 23:01 | Inpatient (IN) | payer BC, SELFPAY ==
[2024-12-15 17:57] VITALS: BP 181/123
[2024-12-15 18:54] LABS: % Basophils 0.9 % (0-2); % Eosinophils 1.4 % (0-6); % Immature Granulocytes 0.6 % (0-0.5); % Lymphocytes 10.9 % (20.5-51.1); % Monocytes 8.2 % (1.7-9.3); Absolute Basophils 0.1 10^3/uL (0-0.2); Absolute Eosinophils 0.1 10^3/uL (0-0.7); Absolute Lymphocytes 0.7 10^3/uL (1.2-3.4); Absolute Monocytes 0.5 10^3/uL (0.1-0.6); Hematocrit 45.2 % (39.0-52.0); Hemoglobin 15.3 g/dL (13.0-18.0); Mean Corp Hgb Conc. 33.8 g/dL (33.0-37.0); Mean Corpuscular Hgb 29.9 pg (27.0-31.0); Mean Corpuscular Volume 88.3 fL (80.0-94.0); Mean Platelet Volume 10.4 fL (7.4-10.4); Nucleated Red Blood Cells % 0 % (-); Platelet Count 218 10^3/uL (130-400); Red Blood Cell Count 5.12 10^6/uL (4.70-6.10); Red Cell Dist. Width 13.4 % (11.5-14.5); White Blood Cell Count 6.4 10^3/uL (4.8-10.8)
[2024-12-15 19:12] LABS: ALT (SGPT) 37 U/L (0-50); AST (SGOT) 47 U/L (17-59); Albumin 3.4 g/dl (3.5-5.0); Alkaline Phosphatase 292 U/L (38-126); Blood Urea Nitrogen 28 mg/dl (9-20); Calcium 8.7 mg/dl (8.4-10.2); Carbon Dioxide 21 mmol/L (22-30); Chloride 103 mmol/L (98-107); Glucose 107 mg/dl (70-99); Potassium 4.3 mmol/L (3.5-5.1); Sodium 134 mmol/L (135-145); Total Bilirubin 0.9 mg/dl (0.2-1.3); Total Protein 6.9 g/dl (6.3-8.2); eGFR > 60.00
--- NOTE | 2024-12-15 20:53 | ED.GENMED ---
History of Present Illness
<JOHNATHAN House - Last Filed: 12/15/24 23:45>
General
Chief Complaint: Swelling
Source: patient
Exam Limitations: none
Time Seen by Provider: 12/15/24 20:22
History of Present Illness
History of Present Illness:
This is a 59 year old male that comes in with multiple complaints. States that he had a lymph node removed from the right groin about 1.5 years ago. States that he had swelling of the right leg after this. States that then in July he got
Cellulitis and was in the hospital for a week. States that things started to look better. States that a month ago he felt like he was getting the flu and he was doing Day-Quil and Night-Quil. Then both legs started to swelling and his scrotum and
abd. States that he got what he thought was joke itch. States that his PCP put him on amoxicillin, Steroid and thing were not getting ant better. States that he was also put on three water pills daily. Then a week ago he was no better and the
hospitalist while he was here gave him a bottle of an antibiotic to use for emergency. States that this was amoxicillin. States that he was almost done this and his PCP told him to stop it. Today he went to see the PCP for a follow up and he was
told to come get Abd Ultrasound, Renal ultrasound and chest x-ray. States that he wasn't even out of the parking lot when the PCP called and told him to come to the ER as he needed admission for IV Lasix. States that he is occasionally SOB. Denies
any fever, chills, chest pain, abd pain, nausea, vomiting, diarrhea, headache, dizziness, urinary burning.
Past History
<JOHNATHAN House - Last Filed: 12/15/24 23:45>
Past History
ED Past Medical History: Cancer (Renal cell cancer, CLL), HTN and Other (Back pain, Cortez's Disease, )
ED Past Surgical History: Appendectomy and Urological (Tumor removed from Kidney, Vasectomy)
Social History
Tobacco: Smoker
Alcohol: Daily (Beer 4)
Personal:
Living: with family
Review of Systems
<JOHNATHAN House - Last Filed: 12/15/24 23:45>
Review of Systems
All Other Systems: ROS reviewed and negative except as documented in HPI and ROS
Constitutional: Reports no symptoms; Denies fever or chills
EENT: Reports no symptoms
Respiratory: Reports trouble breathing; Denies cough
Cardiac: Reports no symptoms; Denies chest pain
ABD/GI: Reports other (Swelling); Denies abdominal pain, nausea, vomiting or diarrhea
: Reports other (Groin swollen with rash); Denies dysuria, frequency or urgency
Musculoskeletal: Reports edema (Legs into groin and lower abd)
Skin: Reports rash
Neurological: Reports no symptoms; Denies dizzy or headache
Psychiatric: Reports no symptoms
Phy Exam
<JOHNATHAN House - Last Filed: 12/15/24 23:45>
General Physical Exam
General Presentation: no apparent distress
General age: appears stated age
General Skin: warm and dry
General Habitus: normal
General Mental: alert
General Hydration: appears well hydrated
ENT Exam
ENT Exam: TM's normal, pharynx normal and neck supple
Eye Exam
Eye Exam: EOMI
Cardiovascular Exam
Cardiovascular Exam: regular rate/rhythm and normal peripheral pulses
Pulmonary Exam
Pulmonary Exam: no respiratory distress, chest non tender, no rhonchi, no wheezing, no cough and other (Decreased breath sounds at bases with very fine crackles)
Gastrointestinal Exam
Gastrointestinal Exam: normal bowel sounds, non tender, soft, no organomegaly, no pulsatile mass and ascites
Musculoskeletal Exam
Musculoskeletal Exam: full ROM and edema (Pitting edema of the feet into the legs and thigh into the Scrotum and lower abd)
Skin Exam
Skin Exam: other (Ramon complexion, Contusion noted on the right medial thigh, Rash on the right flank and lateral thigh, Skin peeling on the scrotum. Feet with calluses on the heels )
Psychiatric Exam
Psychiatric Exam: normal mood/affect
Scores
<JOHNATHAN House - Last Filed: 12/15/24 23:45>
Heart Failure Risk
Heart Failure Risk Score: Yes
History of Stroke or TIA: No
History of intubation for respiratory distress: No
Heart rate on ED arrival >/= 110: No
SaO2 <90% on arrival on room air: No
HR >/=110 during 3min walk test (or too ill to perform test): No
ECG has acute ischemic changes: No
Urea >/=12mmol/L (BUN 33.6mg/dL): No
Serum CO2>/=35mmol/L: No
Troponin I or T elevated to MT Level (0.4mg/dL): No
NT-proBNP >/=5,000ng/L (5,000pg/ml): Yes
HF Risk Score: 1
Admission Status: MEDIUM RISK 5.1% Consider observation or discharge to home with homecare & f/u visit to PCP/Supervisor Offset Plate Preparation, or SNF for treatment
Course
<JOHNATHAN House - Last Filed: 12/15/24 23:45>
Orders/Labs/Results
Orders:
Orders
12/15/24 18:08
Electrocardiogram (*1) Urgent
Reason for Study: Other
Other Reason for Exam: leg swelling
EKG- Treatment ONCE
12/15/24 18:45
Complete Blood Count/With Diff Urgent
Comprehensive Metabolic Panel Urgent
12/15/24 20:48
Furosemide [Lasix] 60 mg IV NOW STA
US Periph Venous LOWER Ext Jimmie Urgent
Comment:
Reason For Exam: Edema, redness
12/15/24 22:43
Admit/Transfer Patient As Directed
Co-Sign Provider:
Level of Care: Inpatient admission
Assign to:: Telemetry
Physician / Group: hospitalist
Diagnosis: volume overload
Reason for Telemetry: Subacute Heart Failure
Date to Stop Telemetry: 12/17/24
Time to Stop Telemetry: 11:00
Reason for Hospitalization: volume overload
Expected length of stay greater than two midnights?: Yes
ELOS- Estimated Length of Stay in days: 2
I certify the patient meets the requirements for IP care: Yes
PRN Pain Medication Management As Directed
May give lesser potent ordered pain med per pt: Yes
preference::
Protocol:: Medication orders for pain may be administered in a
manner that supports deferring to patient preference
when the pt is:
- Requesting an ordered lesser potent pain medication.
Least to most potent pain medications are defined
as: acetaminophen < NSAID < tramadol < opioids
(morphine, oxycodone, hydromorphone).
- Requesting a lesser dose of the same medication IF
ORDERED.
- Requesting a less intrusive route of administration
if both routes are prescribed by the provider (PO <
IV).
12/15/24 22:44
Code Status As Directed
Resuscitation Status: Full Code
12/15/24 22:48
NT-proBNP Routine
Troponin I Routine
12/15/24 23:00
Melatonin 5 mg PO NOW STA
Nystatin Cream [Mycostatin Cream] 1 applic TOPICAL ONCE ONE
12/17/24 11:00
DC Protocol for Telemetry ONCE
Abnormal Lab Results
12/15/24
18:45
Absolute Lymphs (auto) 0.7 L 10^3/uL
(1.2-3.4)
Immature Gran % 0.6 H %
(0-0.5)
Neutrophils % 78.0 H %
(42.2-75.2)
Lymphocytes % 10.9 L %
(20.5-51.1)
Sodium 134 L mmol/L
(135-145)
Carbon Dioxide 21 L mmol/L
(22-30)
BUN 28 H mg/dl
(9-20)
Glucose 107 H mg/dl
(70-99)
Alkaline Phosphatase 292 H U/L
(38-126)
Albumin 3.4 L g/dl
(3.5-5.0)
12/15/24 18:45
12/15/24 18:45
Sodium slightly low. Dehydration. Glucose nonfasting. Alk phos elevation (history of CLL), Troponin 0.023, Pro-BNP 22,500
Vital Signs
Initial and Last Documented VS:
Initial Vital Signs
Temp Pulse Resp BP Pulse Ox
98.0 F 87 18 181/123 100
12/15/24 17:57 12/15/24 17:57 12/15/24 17:57 12/15/24 17:57 12/15/24 17:57
Last Documented Vital Signs
Temp Pulse Resp BP Pulse Ox
98.0 F 85 21 163/108 99
12/15/24 17:57 12/15/24 23:15 12/15/24 23:15 12/15/24 21:19 12/15/24 21:19
<Bernardo Cooney, DO - Last Filed: 12/15/24 21:16>
Orders/Labs/Results
Orders:
Orders
12/15/24 18:08
Electrocardiogram (*1) Urgent
Reason for Study: Other
Other Reason for Exam: leg swelling
EKG- Treatment ONCE
12/15/24 18:45
Complete Blood Count/With Diff Urgent
Comprehensive Metabolic Panel Urgent
12/15/24 20:48
Furosemide [Lasix] 60 mg IV NOW STA
US Periph Venous LOWER Ext Jimmie Urgent
Comment:
Reason For Exam: Edema, redness
12/15/24 22:43
Admit/Transfer Patient As Directed
Co-Sign Provider:
Level of Care: Inpatient admission
Assign to:: Telemetry
Physician / Group: hospitalist
Diagnosis: volume overload
Reason for Telemetry: Subacute Heart Failure
Date to Stop Telemetry: 12/17/24
Time to Stop Telemetry: 11:00
Reason for Hospitalization: volume overload
Expected length of stay greater than two midnights?: Yes
ELOS- Estimated Length of Stay in days: 2
I certify the patient meets the requirements for IP care: Yes
PRN Pain Medication Management As Directed
May give lesser potent ordered pain med per pt: Yes
preference::
Protocol:: Medication orders for pain may be administered in a
manner that supports deferring to patient preference
when the pt is:
- Requesting an ordered lesser potent pain medication.
Least to most potent pain medications are defined
as: acetaminophen < NSAID < tramadol < opioids
(morphine, oxycodone, hydromorphone).
- Requesting a lesser dose of the same medication IF
ORDERED.
- Requesting a less intrusive route of administration
if both routes are prescribed by the provider (PO <
IV).
12/15/24 22:44
Code Status As Directed
Resuscitation Status: Full Code
12/15/24 22:48
NT-proBNP Routine
Troponin I Routine
12/15/24 23:00
Melatonin 5 mg PO NOW STA
Nystatin Cream [Mycostatin Cream] 1 applic TOPICAL ONCE ONE
12/17/24 11:00
DC Protocol for Telemetry ONCE
Abnormal Lab Results
12/15/24
18:45
Absolute Lymphs (auto) 0.7 L 10^3/uL
(1.2-3.4)
Immature Gran % 0.6 H %
(0-0.5)
Neutrophils % 78.0 H %
(42.2-75.2)
Lymphocytes % 10.9 L %
(20.5-51.1)
Sodium 134 L mmol/L
(135-145)
Carbon Dioxide 21 L mmol/L
(22-30)
BUN 28 H mg/dl
(9-20)
Glucose 107 H mg/dl
(70-99)
Alkaline Phosphatase 292 H U/L
(38-126)
Albumin 3.4 L g/dl
(3.5-5.0)
12/15/24 18:45
12/15/24 18:45
Vital Signs
Initial and Last Documented VS:
Initial Vital Signs
Temp Pulse Resp BP Pulse Ox
98.0 F 87 18 181/123 100
12/15/24 17:57 12/15/24 17:57 12/15/24 17:57 12/15/24 17:57 12/15/24 17:57
Last Documented Vital Signs
Temp Pulse Resp BP Pulse Ox
98.0 F 85 21 163/108 99
12/15/24 17:57 12/15/24 23:15 12/15/24 23:15 12/15/24 21:19 12/15/24 21:19
Torrilt;JOHNATHAN House - Last Filed: 12/15/24 23:45>
MDM/Problems Addressed
Differential Diagnosis Includes:
Pleural effusion. Jimmie lower leg edema,
MDM/Problems Addressed:
This is a 59 year old male that comes in with c/o bilateral leg edema, swelling of the scrotum and abd. Patient saw his PCP today and had outpatient X-ray and Ultrasound's. Patient was told to come to the ER for admission.
Will get labs US bilateral legs and give IV Lasix. Will admit
Chronic conditions affecting care: Cancer
Acute Exacerbation and/or Progression of Chronic Illness: Cancer
<JOHNATHAN House - Last Filed: 12/15/24 23:45>
*Radiology
Radiology exam reviewed: radiology read reviewed (Chest as out patient=Small bilateral pleural effusions, New since CT examination of June 18, 2023. Cardiomegaly with no convincing evidence for pulmonary edema pattern. Abd Us-Limited study
demonstrating small volume ascites in the abdomen and pelvis. There is mild pericholecystic edema and ), all reviewed NAD by ED Provider (US cont-thickening of the gallbladder wall to 4mm whhich may be seen in the presence of ascites, however,
there are no intraluminal calculi. Hepatomegaly. 1.4cm left parapelvic renal cyst. Renal US-1.4cm left parapelvic renal cyst. The kidneys are otherwise normal. The urinary bladder is ) and other (US cont- Is incompletely distended and ureteral
jets were not visualized )
*Pulse Oximetry
Patient hypoxic: no
*EKG
Interpreted by ED Provider?: NA
Rate: EKG- N/A
*Dental Appliance Mechanic Interpretation
Rate: Dental Appliance Mechanic- N/A
*Critical Care Note
Total Time (30-74mins, 75-104mins- exclusive of procedures): Not Applicable
ED Attending Note
<JOHNATHAN House - Last Filed: 12/15/24 23:45>
-
Portions of this chart may have been created with voice recognition software.� Occasional wrong word or��sound alike� substitutions may have occurred due to the inherent limitations of voice recognition software.
<Bernardo Cooney DO - Last Filed: 12/15/24 21:16>
ED Attending Note
Patient seen and examined by attending physician: Yes
I performed the substantive portion of visit, reviewed & personally made and approve the management plan that is documented in note by myself or HAYLEY.: Yes
ED Attending Note:
I have seen and evaluated the patient with a [id number] encounter. I have spoken to the advance practicer provider and involved in the medical history, the physical exam, medical decision making.
Evaluation and management service: agree unless noted differently below.
Results interpretation: agree unless noted differently below.
Focused HPI: 59-year-old male presenting with uncontrolled edema. Patient has a history of congestive heart failure and his PCP sent him in for IV Lasix
Physical exam: Pitting edema in both legs. Anasarca noted. Edema noted to scrotum with mild erythema
Medical Decision Making: Will start IV Lasix and will place on nystatin cream on his scrotum
Discharge Plan
Departure
Patient Disposition: Admit
Date of Disposition: 12/15/24
Time of Disposition: 21:15
Admit to: Med/Surg
Presentation/result/management discussed w/ accepting MD/DO: Hospitalist
Patient with high blood pressure during this ER visit?: Yes
Condition: Good
Covid-19: Not Applicable
Discharge Problem:
Bilateral pleural effusion, Abdominal ascites, Bilateral edema of lower extremity, Rash on scrotum
Interventions
Interventions:
*Risk Screen - Suicide Last Done: 12/15/24 17:57
*General Assessment Last Done: 12/15/24 21:11
*Neglect/Abuse Screening Last Done: 12/15/24 17:57
ED- Fall Risk Assessment Last Done: 12/15/24 21:11
*ED COVID-19 Vaccine History Last Done: 12/15/24 17:57
ED- Cardiac Assessment Last Done: 12/15/24 21:20
ED- Pulmonary Assessment Last Done: 12/15/24 21:21
ED-Skin Assessment Last Done: 12/15/24 21:46
[2024-12-15 21:11] VITALS: BMI 33.2
[2024-12-15 21:15] VITALS: BP 180/113
[2024-12-15] MEDS: LASIX 60 MG IV (21:15)
[2024-12-15 21:19] VITALS: BP 163/108
--- NOTE | 2024-12-15 22:17 | HPS.HSE ---
Family Physician
-
Family Physician: Jairo Mcneill
Chief Complaint
-
Anasarca
History of Present Illness
This is a 59-year-old with past medical history significant for CLL, renal cell cancer status post nephrectomy without any radiation or chemotherapy, recurrent lower extremity swelling status post lymph node excision recently will presents to the
emergency department with ongoing swelling.
Per patient and family has been dealing with intermittent swelling for the last 1 year. PMD noticed proteinuria on recent visit. However over the last few weeks she has had bilateral lower extremity swelling, abdominal swelling and distention
without any abdominal pain nausea or vomiting, mild dyspnea on exertion and some shortness of breath. Scrotal edema. He has fatigue. family noticed increased facial swelling as well. He has no prior history of CAD or CHF. Denies history of
diabetes. He has no history of pulmonary disease. He has no history of liver disease.
In the emergency department he was hypertensive to 180/113 with a pulse of 90 satting 99% on room air. CBC was unremarkable. BUN/creatinine with normal. Electrolytes were normal with a potassium of 4.3. BMP is pending. Troponin is pending. ECG
shows a normal sinus rhythm with left atrial enlargement at a rate of 92. Chest x-ray shows bilateral pleural effusion.
ABD u/s - Limited study demonstrating small volume ascites in the abdomen and pelvis
Renal u/s -
1.4 cm left parapelvic renal cyst.
The kidneys are otherwise normal.
The urinary bladder is incompletely distended and ureteral jets were not visualized
Medical History
Past Medical History
Past Medical History: Reports Cancer (CLL, Renal Cell Ca s/p nephrectomy), HTN and NIDDM
Past Surgical History: Reports Other (nephrectomy)
Social History
Tobacco: Smoker
Alcohol: Daily (4 bottles of beer daily)
Drug: None
Personal:
Living: With Family
Family History
Family History: Not pertinent
Allergies / Home Medications
Allergies reflects when Allergies were last updated in [employer].
Home Medications with original date entered in [employer]
Allergy/Medication List:
Allergies
Allergy/AdvReac Type Severity Reaction Status Date / Time
No Known Allergies Allergy Verified 12/15/24 18:03
Home Medications
acetaminophen 325 mg tablet 650 mg (2 x 325 mg) PO Q6HPRN PRN mild pain #14 tabs 05/28/23
furosemide 20 mg tablet (Lasix) 20 mg PO BID Fluid Retention/Swelling 07/30/24
amoxicillin 500 mg capsule 1,000 mg (2 x 500 mg) PO Q8H #60 caps 08/05/24
potassium chloride 20 mEq tablet,extended release(part/cryst) 20 meq PO DAILY AT 0700 #30 tabs 08/05/24
Review of Systems
-
History Source: Patient
Constitutional: Reports No Symptoms
EENT: Reports No Symptoms
Respiratory: Reports No Symptoms
Abdomen/GI: Reports No Symptoms
: Reports No Symptoms
Musculoskeletal: Reports Edema
Skin: Reports No Symptoms
Neurological: Reports No Symptoms
Endocrine: Reports No Symptoms
Hematologic/Lymphatic: Reports No Symptoms
Psych: Reports No Symptoms
Physical Exam
Vital Signs
Vital Signs
Temp Pulse Resp BP Pulse Ox
98.0 F 90 12 180/113 99
12/15/24 17:57 12/15/24 21:15 12/15/24 21:15 12/15/24 21:15 12/15/24 21:15
Physical Exam
General: Well Developed, Well Nourished, No Apparent Distress and Comfortable
HEENT: Moist mucous membranes and Atraumatic
Respiratory: Clear
Cardiac: Regular Rhythm
Breast: Deferred by me
GI: Soft, Non Tender, Non Distended and Normal Bowel Sounds
Rectal: Deferred by Provider
Genito-urinary: Deferred by me
Musculoskeletal: No Clubbing, No Cyanosis, Edema, Left Lower Extremity and Edema, Right Lower Extremity
Skin: Warm, Dry and Rash (petechial rash in extremities, palmar erythema and erythema of soles)
Neuro: AO x 3 and Nonfocal/grossly intact
Psych: Calm
Laboratory Results
-
12/15/24 18:45
12/15/24 18:45
Laboratory Results
Total Bilirubin 0.9 mg/dl (0.2-1.3) 12/15/24 18:45
AST 47 U/L (17-59) 12/15/24 18:45
ALT 37 U/L (0-50) 12/15/24 18:45
Alkaline Phosphatase 292 U/L (38-126) H 12/15/24 18:45
Troponin I Cancelled 12/15/24 21:10
Troponin I Cancelled 12/15/24 21:10
Data Reviewed
-
Diagnostic Radiology: Report Reviewed by me
Ultrasound: Report Reviewed by me
Medical Tests (Nuc Med, Echo, EKG etc): Image Personally Visualized and interpreted
Lab Data: Labs Reviewed by me
Old Records: Reviewed
Impression/Plan
-
IMPRESSION:
59 y.o male with h/o CLL and prior renal cell ca s/p nephrectomy presenting with bilateral lower extremity swelling, scrotal swelling, fatigue and dyspnea on exertion. Reported to have urine protein per PCP. BNP markedly elevated here. JVD also
elevated suggestive more of heart failure and possibly some right sided heart failure versus nephrotic syndrome.
PLAN:
1. Edema - Mostly abdominal, leg edema with bilateral pleural effusions. Differential includes CHF, nephrotic syndrome (hypertensive here and h/o proteinuria). Suspect heart failure.
- admit to telemetry
- given normal renal function will start lasix 40 mg iv q 12 for now
- daily weights and i/os
- echo in am
- cardiology consult
- ab u/s is negative for cirrhosis, ascites not tapable.
- u/a, urine protein/cr. check 24 hour protein
- check spep/upep, RF, hep C
- if poteinuria +, consult nephrology
DVT PPX - lovenox sq
Code status - full code
[2024-12-15 23:29] LABS: NT-proBNP 22500 pg/ml; Troponin I 0.023 ng/ml
[2024-12-16] VITALS (8 sets, daily range): BP systolic 144–162; BP diastolic 83–101; BMI 32.0
[2024-12-16] MEDS: MELATONIN 5 MG PO ×2 (00:08→21:52)
[2024-12-16] MEDS: MYCOSTATIN CREAM 1 APPLIC TOPICAL (00:08)
[2024-12-16 05:53] LABS: ALT (SGPT) 32 U/L (0-50); AST (SGOT) 35 U/L (17-59); Albumin 3.1 g/dl (3.5-5.0); Alkaline Phosphatase 231 U/L (38-126); Blood Urea Nitrogen 27 mg/dl (9-20); Calcium 8.9 mg/dl (8.4-10.2); Carbon Dioxide 23 mmol/L (22-30); Chloride 105 mmol/L (98-107); Direct Bilirubin 0.4 mg/dl (0.0-0.4); Estimated Creatinine Clearance 118 ml/min; Glucose 90 mg/dl (70-99); Magnesium 2.2 mg/dl (1.6-2.3); Potassium 4.3 mmol/L (3.5-5.1); Sodium 136 mmol/L (135-145); Total Protein 6.4 g/dl (6.3-8.2); eGFR > 60.00
[2024-12-16 06:15] LABS: TSH Reflex To Free T4 4.72 uIU/ml (0.47-4.68)
[2024-12-16] MEDS: LASIX 60 MG IV ×2 (07:59→15:37)
[2024-12-16 08:03] LABS: Erythrocyte Sed Rate 23 mm/hour (0-20)
[2024-12-16 08:37] LABS: Urine Albumin 4+ (Neg - Trace); Urine Bilirubin Negative (Negative); Urine Character Clear (Clear); Urine Color Yellow; Urine Glucose Negative (Negative); Urine Ketone Negative (Negative); Urine Leukocyte Negative (Negative); Urine Nitrite Negative (Negative); Urine Occult Blood 3+ (Negative); Urine Urobilinogen Negative (Neg - 1+)
--- NOTE | 2024-12-16 08:45 | W.PN.HOSP.TC ---
Today's Communication/Plan
-
see bold
Assessment / Plan
Assessment / Plan
HPI: 59 yo M with PMH of RCC s/p partial L nephrectomy 2021, history of lymphedema of RLE due to R groin resection, daily ETOH and tobacco use who presents to [facility] for evaluation of progressive B/L LE edema. He reports he has had some chronic RLE
edema since his R groin LN resection. He then was admitted and treated for cellulitis 07/2024. He reports ~1-2 months ago he had a respiratory infection and was taking dayquil/nyquil. He reports since then he has had progressive LE edema of both legs
into thighs, scrotum, and abdomen. He has also noted rash of legs, which is pruritic. He has been given several courses of abx and steroids. He also was started on po lasix and dose was uptitrated recently to 3x per day without improvement. PCP
ordered abd US as well as CXR and peripheral US which were completed yesterday. CXR showed B/L pleural effusions and patient was recommended coming to ER. He states he smokes 1/3-1/2 ppd and drinks 4-5 beers daily.
#Acute heart failure with a reduced ejection fraction
#Small bilateral pleural effusions
12/16 Echo EF 35-40%, dilated right heart w/ RV hypokinesis, mod pulm HTN
Appreciate cardiology input, continue IV Lasix, trend creatinine, trend daily weights
#Proteinuria
#Hematuria
#History of renal cell carcinoma status post partial left nephrectomy
SPEP studies ordered, collect 24-hour urine, consult nephrology
#Pruritic rash on bilateral legs, abdomen, posterior thighs and gluteal folds
Status post multiple courses of antibiotics and steroids outpatient
Rash on posterior thighs and gluteal folds appear fungal�continue fungal cream
Unclear etiology for rash on legs, abdomen, ?amoxicillin rash
reports rash on legs and abdomen appeared a few days ago, he did finish a course of amoxicillin on 12/14
Recommend outpatient follow-up with dermatology
#Bilateral lower extremity edema
#Chronic right lower extremity edema since right groin lymph node resection
Lower extremity Dopplers are negative
#Small volume ascites
# Hepatomegaly
Suspect secondary to alcohol use
#Daily alcohol use
Drinks 4�beers daily
Monitor for withdrawal
#Cigarette nicotine dependency
Nicotine cessation counseling
Will offer nicotine patch as needed
#Hyponatremia
#Obesity due to excess calories
DVT prophylaxis�subcu Lovenox
Full code
Total time spent to see the patient on the floor, examine the patient, review data and lab results, discuss treatment plan with patient, nursing staff around 55 minutes.
Physical Exam
General: Obese, no acute distress
HEENT: Normocephalic, Atraumatic, EOMI, MMM
Respiratory: Clear to Auscultation bilaterally
Cardiac: Normal S1/S2, Regular Rate and Rhythm
GI: Soft, Nontender, Nondistended, Normal Bowel Sounds
Extremities: No Clubbing, Cyanosis
Bilateral lower extremity edema, right greater than left
Neuro: Nonfocal/Grossly Intact
Psych: Calm, Cooperative
Derm:
Diffuse erythematous macular papular rash on abdomen, right lateral thigh
Scaly darkened erythematous rash on posterior thighs, near gluteal fold
Erythema and edema of right groin near previous lymph node excision site
Anticipated Discharge: 24 - 48 hours
Subjective/Interval History
-
Date of Service: December 16, 2024
Denies shortness of breath. No chest pain. Reports his rash is itchy. No fever, no vomiting.
Objective Data
-
Labs:
Laboratory Results
12/16/24
04:52
Sodium 136
Potassium 4.3
Chloride 105
Carbon Dioxide 23
BUN 27 H
Creatinine 0.8
Glucose 90
Calcium 8.9
Total Bilirubin 1.0
AST 35
ALT 32
Alkaline Phosphatase 231 H
Vital Signs:
Vital Signs
Temp Pulse Resp BP Pulse Ox
98.0 F 71 19 144/96 97
12/15/24 17:57 12/16/24 08:00 12/16/24 08:00 12/16/24 08:00 12/16/24 08:07
--- NOTE | 2024-12-16 09:12 | CON.CAR ---
Addendum entered and electronically signed by Santiago Ngo MD 12/16/24 11:37:
59-year-old man with history of renal cell carcinoma and left partial nephrectomy 2021, with lymphedema following right inguinal lymph node biopsy, history of daily EtOH and tobacco use with progressive lower extremity edema and dyspnea on exertion.
He reports respiratory infection weeks ago. Now with anasarca, he has had antibiotics for possible cellulitis and rash. Presents to the ER with chest x-ray that shows bilateral pleural effusions, has 4-5 beers daily and has a proBNP of 22,500,
some dyspnea on exertion with stairs
PMH: As above
SH: , employed, smoker, at least moderate alcohol intake
FH: Uncertain significance
Allergies: None
Outpatient meds: Furosemide
ROS: As below
152/91, pulse 81,, Weight is 105 kg, was 96.8 kg in July, head neck exam unremarkable, slightly diminished breath sounds in bases, JVD markedly elevated, regular rate rhythm without murmurs, abdomen obese, anasarca,
Hemoglobin 15.3, BUN/creatinine 27 and 0.8, potassium 4.3, alk phos 231, C-reactive protein 17, albumin 3.1, proBNP 22,500, TSH 4.7 with normal free T4, 3+ blood in urine, troponin 0.023
EKG sinus rhythm, left atrial enlargement, right bundle branch block, cannot exclude anterior VT
Echo: EF 35-40% mild LVH, dilated RV and RA, dilated left atrium, mild MR, pulmonary artery systolic pressure 50-55 mmHg
Impression:
Acute/subacute HFrEF/anasarca
Moderate pulmonary hypertension with RV dilatation and hypokinesis
Daily alcohol tobacco use
History of renal cell carcinoma/partial nephrectomy
History of lymph node dissection right bundle branch block
Hepatomegaly/trace ascites
Plan:
He presents with what could be consistent with acute or subacute HFrEF related to alcoholic cardiomyopathy. Obstructive CAD, pulmonary embolism, viral or other causes of LV dysfunction all seem less likely but should remain on the differential list.
Will treat with IV furosemide, and initiate GDMT. Ultimate goal will be DARRYL/ARB or Entresto, spironolactone, and SGLT2 antagonist.
Defer to hospitalist regarding other potential entities such as rheumatologic conditions, cirrhosis, etc. that could be contributors.
For now ,Metoprolol ER has been started. Furosemide is 60 mg IV twice daily. I will add losartan 25 mg a day, and we will uptitrate meds from there.
Original Note:
Consultation
Consultation Request
Date/Time Consultation Performed: 12/16/24
Requesting Provider: Dr. Briceno
Performing Provider: Maria Guadalupe Thompson PA-C for Dr. SEKOU Ngo
Reason for Consultation: CHF
Medical History
-
Chief Complaint: LE edema
History of Present Illness:
Patient is a 59 yo M with PMH of RCC s/p partial L nephrectomy 2021, history of lymphedema of RLE due to R groin resection, daily ETOH and tobacco use who presents to [facility] for evaluation of progressive B/L LE edema. He reports he has had some
chronic RLE edema since his R groin LN resection. He then was admitted and treated for cellulitis 07/2024. He reports ~1-2 months ago he had a respiratory infection and was taking dayquil/nyquil. He reports since then he has had progressive LE edema
of both legs into thighs, scrotum, and abdomen. He has also noted rash of legs, which is pruritic. He has been given several courses of abx and steroids. He also was started on po lasix and dose was uptitrated recently to 3x per day without
improvement. PCP ordered abd US as well as CXR and peripheral US which were completed yesterday. CXR showed B/L pleural effusions and patient was recommended coming to ER. He states he smokes 1/3-1/2 ppd and drinks 4-5 beers daily. ProBNP 16211.
Denies recent CP. Reports no SOB until the last several days when he noted some FAROOQ with going up the stairs.
PMH:
RCC s/p partial L nephrectomy 2021
History of R groin LN dissection with subsequent lymphedema
daily ETOH use
daily tobacco use
Past Medical History
Past Medical History: Other (in HPI)
Social History
Tobacco: Smoker
Alcohol: Daily
Personal:
Living: With Family
Employment: Employed
Family History
Family History: Other (he thinks history of VT in biological father)
Allergies / Home Medications
Allergy/AdvReac Type Severity Reaction Status Date / Time
No Known Allergies Allergy Verified 12/15/24 18:03
�Medication �Instructions �Recorded �Confirmed �Type
acetaminophen 325 mg tablet 650 mg (2 x 325 mg) PO Q6HPRN PRN 05/28/23 07/30/24 Rx
mild pain #14 tabs
furosemide 20 mg tablet (Lasix) 20 mg PO BID Fluid 07/30/24 07/30/24 History
Retention/Swelling
potassium chloride 20 mEq 20 meq PO DAILY AT 0700 #30 tabs 08/05/24 Rx
tablet,extended release(part/cryst)
Review of Systems
-
History Source: Patient
All other systems: Negative unless noted
Physical Exam
Vital Signs
Temp Pulse Resp BP Pulse Ox
98.0 F 71 19 144/96 97
12/15/24 17:57 12/16/24 08:00 12/16/24 08:00 12/16/24 08:00 12/16/24 08:07
Lab Results
12/15/24 18:45
12/16/24 04:52
Troponin I 0.023 ng/ml 12/15/24 22:48
Qzh-F-Qjbydnaudkx Pept 41398 pg/ml 12/15/24 22:48
Physical Exam
General: No Apparent Distress and Comfortable
HEENT: Normocephalic, Anicteric and Moist Mucous Membranes
Respiratory: Clear and Non Labored Respirations
Cardiac: S1/S2 and Regular Rhythm
GI: Soft, Non Tender, Non Distended and Normal Bowel Sounds
Musculoskeletal: No Clubbing, No Cyanosis and Edema (3+ to level of thigh B/L)
Skin: Warm, Dry and Rash (of R>L upper thighs. with scaly patches of B/L buttocks and behind knees. with calluses of B/L feet/heels)
Neuro: AO x 3
Impression / Plan
-
Primary Dermatology Technician: none prior to admission
Assessment:
Presentation with marked LE edema
Acute CHF, unknown type
Hypoalbuminemia
Elevated CRP/ESR
LE rash
RCC s/p partial L nephrectomy 2021
History of R groin LN dissection with subsequent lymphedema
daily ETOH use
daily tobacco use
L renal cyst
ECHO 12/16/24: pending
Plan:
-Patient presents with progressive marked bilateral lower extremity edema over the last 1 to 2 months, despite escalation of outpatient diuretic therapy
-proBNP elevated at 22,500
-Chest x-ray with small bilateral pleural effusions. Peripheral ultrasound negative for DVT. Abdominal ultrasound without significant ascites
-Findings consistent with acute CHF. Agree with IV Lasix diuresis 60 mg twice daily. Creatinine stable
-CHF education
-Check echo
-EKG with inferior and anterior ST inversion/depression compared to prior from 2021. Troponin 0.023, trend. Patient reports no recent chest discomfort. repeat EKG in AM
-Blood pressure is elevated. Will place on Toprol 25 mg daily and follow
-Check CVE in AM
-Albumin noted to be 3.1. Awaiting urine protein studies.
-Will need wound care evaluation, consult ordered
-Defer treatment of lower extremity rash to primary service
-Discussed alcohol and tobacco cessation with patient
Data Reviewed
-
EKG: Tracing Personally Visualized and interpreted
Radiology: Report Reviewed by me
Ultrasound: Report Reviewed by me
Labs: Labs Reviewed by me
Old Records: Reviewed
--- NOTE | 2024-12-16 09:44 | CARDSERVLU ---
Echocardiogram with Lumason completed after protocol screening completed. Allergies verified.
Patent IV site: Rt hand___
IV site flushed with 0.9% NaCl pre and post administration.
Diluted bolus method utilized to enhance visualization of ventricular galvez.
Total volume given: __1.5__ mL
Patient tolerated all procedures well without complications.
[2024-12-16 09:52] LABS: Urine Mucus Many; Urine Urothelial Cell 0-2 /LPF (FEW)
[2024-12-16 09:53] LABS: Urine Amorphous Seen
[2024-12-16 09:54] LABS: Protein/creatinine Ratio 6.2; Urine Protein 591 mg/dl
[2024-12-16 09:55] LABS: Urine White Cell 0-2 /HPF (0-5)
[2024-12-16] MEDS: TOPROL XL 25 MG PO (10:55)
[2024-12-16] MEDS: COZAAR 25 MG PO (12:25)
--- NOTE | 2024-12-16 12:29 | WOUNDNOTE ---
BYRON (L LATERAL; R MEDIAL)
--- NOTE | 2024-12-16 12:34 | WOUNDNOTE ---
R BUTTOCKS (LOWER CREASE)
--- NOTE | 2024-12-16 12:36 | WOUNDNOTE ---
WO RN note: Patient admitted with volume overload, swelling. Patient lives with who is present.
See H&P for complete history.
PMH: CLL, R groin lymph node excision with subsequent lymphedema, NIDDM, drinks 4 bottles of beer/day, smoker.
Wound Location and type/assessment: Patient admitted with: Abdominal/groin/thigh/leg scattered rash with itchy skin (abdomen mostly itch). Suspect rash if d/t anasarca along with dry skin. Groin/scrotal rash suspect may be a fungal rash. Foot/ankle
rash suspect r/t tinea pedis rash. Coccyx crease rash patch suspect r/t dry skin (psoriasis?). +Palpable R pedal pulse. L pedal pulse heard via portable Doppler. Trace-+1 LE edema. Posterior and inferior medial ankles with dry plaques of skin with
some skin fissures. No drainage noted. Patient wears knee high compression stockings at home.
Appetite: good.
Pressure redistribution devices in place: ED stretcher. Patient is mobile.
Plan: Heels off bed with pillow. Instructed pressure injury prevention measures.
Updated and confirmed orders with Dr. Zuniga who approved local skin care, bilateral knee high Rodger or patient's compression socks as tolerated (remove q hs). Asked Dr. Zuniga to evaluate rash including abdomen and legs for other potential cause (i.e.
scabies).
Care plan to be updated, updated ED RN Aure, and will follow as needed.
[2024-12-16] MEDS: NIZORAL 2% CREAM 1 APPLIC TOPICAL (15:26)
[2024-12-16] MEDS: DESENEX/MITRAZOL/ZEASORB 3 APPLIC TOPICAL (15:26)
[2024-12-16] MEDS: HYDROPHOR 1 APPLIC TOPICAL (15:26)
[2024-12-16 16:31] LABS: Troponin I 0.016 ng/ml
[2024-12-16] MEDS: LOVENOX 40 MG SC (17:54)
[2024-12-16] MEDS: NICODERM TRANSDERMAL 14 MG TRANSDERM (18:02)
--- NOTE | 2024-12-16 18:07 | W.CON.NEPH ---
Consultation
-
Date/Time Consultation Requested: 12/16/24 1703
Date/Time Consultation Performed: 12/16/24 1830
Requesting Provider: Sera Nick DO
Performing Provider: Nickie Calderon
Reason for Consultation: Proteinuria
Medical History
-
Chief Complaint: Anasarca
History of Present Illness:
59-year-old with past medical history significant for CLL, renal cell cancer status post partial nephrectomy 2021 without any radiation or chemotherapy follows Dr Guzman, Dr Reynaga, right lower extremity lymphedema status post lymph node excision
recently, presents to the emergency department with ongoing swelling despite on lasix on 12/15. He felt to have acute CHF , EF Low 35-40% and pulm HTN, started on lasix with improving edema and wt. W/u also revealed nephrotic range proteinuria of
6.2gm/gm of cr and alb 3.2. Hence nephrology consulted.
He also noted HTN and started on ARB and BB. He currently has gen rash which felt from multiple abx courses for cellulitis. Last abx Amoxicillin completing on 12/14. He reports gaining 25lbs in last 1-2months. Has started eating heavy protein diet,
protein shakes recently. no NSAIDs use. No dysuria but has scrotal edema.
Past Medical History
CLL, Renal Cell Ca s/p partial nephrectomy), HTN and NIDDM
Past Surgical History: Other (nephrectomy-partial)
Social History
Tobacco: Smoker
Alcohol: Daily (4beer/day)
Drug: None
Personal:
Living: With Family
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
Family History
no CKD
Family History: Not Pertinent
Allergies / Home Medications
Allergy/AdvReac Type Severity Reaction Status Date / Time
No Known Allergies Allergy Verified 12/15/24 18:03
�Medication �Instructions �Recorded �Confirmed �Type
furosemide 20 mg tablet (Lasix) 20 mg PO BID Fluid 07/30/24 12/16/24 History
Retention/Swelling
Review of Systems
-
All complete 12 point ROS have been inquired and found negative other than stated in HPI
Physical Exam
Vital Signs
Vital Signs
Temp Pulse Resp BP Pulse Ox
97.4 F 69 18 162/97 98
12/16/24 15:51 12/16/24 15:51 12/16/24 15:51 12/16/24 15:51 12/16/24 15:54
Lab Results
WBC 6.4 10^3/uL (4.8-10.8) 12/15/24 18:45
RBC 5.12 10^6/uL (4.70-6.10) 12/15/24 18:45
Hgb 15.3 g/dL (13.0-18.0) 12/15/24 18:45
Hct 45.2 % (39.0-52.0) 12/15/24 18:45
Plt Count 218 10^3/uL (130-400) 12/15/24 18:45
Sodium 136 mmol/L (135-145) 12/16/24 04:52
Potassium 4.3 mmol/L (3.5-5.1) 12/16/24 04:52
Chloride 105 mmol/L (98-107) 12/16/24 04:52
Carbon Dioxide 23 mmol/L (22-30) 12/16/24 04:52
BUN 27 mg/dl (9-20) H 12/16/24 04:52
Creatinine 0.8 mg/dL (0.7-1.3) 12/16/24 04:52
eGFR > 60.00 12/16/24 04:52
Glucose 90 mg/dl (70-99) 12/16/24 04:52
Calcium 8.9 mg/dl (8.4-10.2) 12/16/24 04:52
Dvn-R-Rwlfopbkxsi Pept 71792 pg/ml 12/15/24 22:48
Albumin 3.1 g/dl (3.5-5.0) L 12/16/24 04:52
echo:
CONCLUSIONS
1. Mild concentric left ventricular hypertrophy with septal straightening,
normal cavity size and global hypokinesis, EF 35-40%
2. Thickened mitral leaflets, mitral annular calcification, mild mitral
regurgitation and dilated left atrium
3. Aortic sclerosis without stenosis or regurgitation
4. Dilated right heart with RV hypokinesis and moderate pulmonary
hypertension, 50-55 mmHg systolic
There are no prior studies available for comparison.
renal US;
IMPRESSION:
1.4 cm left parapelvic renal cyst.
The kidneys are otherwise normal.
The urinary bladder is incompletely distended and ureteral jets were not visualized
Physical Exam
General: Awake, Alert, Oriented, AOx3, No Distress and Nontoxic
HEENT: EOMI, Anicteric, Ear/Nose Intact, Dentition Intact and Neck Supple
Respiratory: Clear, Normal Excursion and Nonlabored Respirations
Cardiac: S1/S2 and Regular Rate/Rhythm
Breast: Deferred by me
Abdomen: Soft, Nontender and Other (distended)
Musculoskeletal: No Cyanosis and Edema
Skin: Other (erythematous rash -gen)
Neuro: Nonfocal/Grossly Intact
Psych: Mood/afflect pleasant, Insight/judgement good and Appropriate
Data Reviewed
-
Radiology: Report Reviewed by me and Discussed with Patient
Labs: Labs Reviewed by me and Discussed with Patient
Assessment/Plan
-
IMP:
Acute heart failure with a reduced ejection fraction
Small bilateral pleural effusions
12/16 Echo EF 35-40%, dilated right heart w/ RV hypokinesis, mod pulm HTN
Nephrotic range Proteinuria
Micro Hematuria
History of renal cell carcinoma status post partial left nephrectomy 2021
Pruritic rash on bilateral legs, abdomen, posterior thighs and gluteal folds Status post multiple courses of antibiotics and steroids outpatient
Bilateral lower extremity edema
Chronic right lower extremity edema since right groin lymph node resection
Small volume ascites
Hepatomegaly
Daily alcohol use
Cigarette nicotine dependency
Hyponatremia
Obesity due to excess calories
Plan:
A/w new CHF, echo noted
also nephrotic range proteinuria 6.2gm/gm of cr
mild microhematuria with known RCC partial nephrectomy
renal US non acute
check serologies and paraprotein w/u
may need biopsy next week based on testing, not on ASA
cont IV diuretics
Titrate losartan as BP can tolerate
cr seem to be normal range
need to quit smoking, ETOH
Also avoid heavy protein diet
low salt diet and FR 48ounces/day
d/w pt , did not discuss with him about biopsy yet
[2024-12-16] MEDS: THIAMINE INJECTION 200 MG IV (21:52)
[2024-12-17 03:00] VITALS: BP 146/86
[2024-12-17] MEDS: TYLENOL 650 MG PO (03:39)
[2024-12-17 06:00] VITALS: BMI 31.6
[2024-12-17 07:44] VITALS: BP 154/93
--- NOTE | 2024-12-17 08:01 | W.PN.HOSP.TC ---
Today's Communication/Plan
-
see bold
Assessment / Plan
Assessment / Plan
HPI: 59 yo M with PMH of RCC s/p partial L nephrectomy 2021, history of lymphedema of RLE due to R groin resection, daily ETOH and tobacco use who presents to [facility] for evaluation of progressive B/L LE edema. He reports he has had some chronic RLE
edema since his R groin LN resection. He then was admitted and treated for cellulitis 07/2024. He reports ~1-2 months ago he had a respiratory infection and was taking dayquil/nyquil. He reports since then he has had progressive LE edema of both legs
into thighs, scrotum, and abdomen. He has also noted rash of legs, which is pruritic. He has been given several courses of abx and steroids. He also was started on po lasix and dose was uptitrated recently to 3x per day without improvement. PCP
ordered abd US as well as CXR and peripheral US which were completed yesterday. CXR showed B/L pleural effusions and patient was recommended coming to ER. He states he smokes 1/3-1/2 ppd and drinks 4-5 beers daily.
#Acute heart failure with a reduced ejection fraction
#Small bilateral pleural effusions
12/16 Echo EF 35-40%, dilated right heart w/ RV hypokinesis, mod pulm HTN
Appreciate cardiology input, increase IV Lasix, trend creatinine, trend daily weights
#Proteinuria
#Hematuria
#History of renal cell carcinoma status post partial left nephrectomy
Appreciate nephrology input, plan for renal biopsy Thursday
Follow-up on serologies
#New maculopapular rash on abdomen and right upper lateral thigh
Patient was taking amoxicillin from 12/07 - 12/14
noticed this rash on 12/14
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
Discussed with Dr. Rucker, who agrees for biopsy on Thursday
#Chronic rash on posterior thighs
Status post multiple courses of antibiotics and steroid cream outpatient
Rash on posterior thighs and gluteal folds appear fungal�continue fungal cream
Rash behind knee could be eczema -recommend outpatient follow-up with Derm
#Bilateral lower extremity edema
#Chronic right lower extremity edema since right groin lymph node resection
Lower extremity Dopplers are negative
#Small volume ascites
# Hepatomegaly
Suspect secondary to alcohol use
#Daily alcohol use
Drinks 4�beers daily
Monitor for withdrawal
#Cigarette nicotine dependency
Nicotine cessation counseling
Will offer nicotine patch as needed
#Hyponatremia
#Obesity due to excess calories
DVT prophylaxis�subcu Lovenox
Full code
Total time spent to see the patient on the floor, examine the patient, review data and lab results, discuss treatment plan with patient, nursing staff around 53 minutes.
Physical Exam
General: Obese, no acute distress
HEENT: Normocephalic, Atraumatic, EOMI, MMM
Respiratory: Clear to Auscultation bilaterally
Cardiac: Normal S1/S2, Regular Rate and Rhythm
GI: Soft, Nontender, Nondistended, Normal Bowel Sounds
Extremities: No Clubbing, Cyanosis
Bilateral lower extremity edema, right greater than left
Neuro: Nonfocal/Grossly Intact
Psych: Calm, Cooperative
Derm:
Diffuse erythematous macular papular rash on abdomen, right lateral thigh
Scaly darkened erythematous rash on posterior thighs, near gluteal fold
Erythema and edema of right groin near previous lymph node excision site
Anticipated Discharge: > 48 hours
Subjective/Interval History
-
Date of Service: December 17, 2024
Patient complains his rash and itchiness is worse. No fever, no vomiting.
Objective Data
-
Labs:
Laboratory Results
12/17/24
07:22
Sodium Pending
Potassium Pending
Chloride Pending
Carbon Dioxide Pending
BUN Pending
Creatinine Pending
Glucose Pending
Calcium Pending
Vital Signs:
Vital Signs
Temp Pulse Resp BP Pulse Ox
97.5 F 67 20 154/93 94
12/17/24 07:44 12/17/24 07:44 12/17/24 07:44 12/17/24 07:44 12/17/24 07:44
I&O
12/16/24 12/17/24 12/18/24
06:59 06:59 06:59
Intake Total 1000 / 1000
Output Total 750 / 750
Balance 250 / 250
[2024-12-17 08:02] LABS: Blood Urea Nitrogen 31 mg/dl (9-20); Calcium 8.9 mg/dl (8.4-10.2); Carbon Dioxide 25 mmol/L (22-30); Chloride 103 mmol/L (98-107); Estimated Creatinine Clearance 92 ml/min; Glucose 91 mg/dl (70-99); HDL Cholesterol 62 mg/dl; LDL Cholesterol, Calculated 67 mg/dl; Potassium 3.9 mmol/L (3.5-5.1); Sodium 137 mmol/L (135-145); Total Cholesterol 146 mg/dl (50-199); Triglyceride 86 mg/dl (10-149); Very Low Density Lipoprotein 17 mg/dl (0-30); eGFR > 60.00
[2024-12-17] MEDS: NICODERM TRANSDERMAL 14 MG TRANSDERM (08:24)
[2024-12-17] MEDS: THIAMINE INJECTION 200 MG IV ×2 (08:27→20:20)
[2024-12-17] MEDS: COZAAR 25 MG PO (08:28)
[2024-12-17] MEDS: FOLVITE 1 MG PO (08:28)
[2024-12-17] MEDS: TOPROL XL 25 MG PO (08:28)
[2024-12-17] MEDS: LASIX 60 MG IV (08:28)
[2024-12-17] MEDS: DESENEX/MITRAZOL/ZEASORB 1 APPLIC TOPICAL ×2 (08:29→20:19)
[2024-12-17] MEDS: NIZORAL 2% CREAM 1 APPLIC TOPICAL ×2 (08:30→20:20)
[2024-12-17] MEDS: HYDROPHOR 1 APPLIC TOPICAL ×2 (08:30→20:19)
--- NOTE | 2024-12-17 10:11 | W.PN.CARDCBS ---
Today's Communication / Plan
-
Intensify Lasix to 80 mg twice daily
Impression / Plan
-
Primary Drift Miner: none prior to admission
Assessment:
Acute decompensated HFrEF
Presentation with marked LE edema / anasarca / Hypoalbuminemia
Nephrotic range proteinuria of 6.2gm/gm of cr and alb 3.2
CLL, history of R groin LN dissection with subsequent lymphedema
Moderate pulmonary hypertension with RV dilatation and hypokinesis
Daily alcohol and tobacco use
History of renal cell carcinoma/partial nephrectomy 2021
Elevated CRP/ESR
Hepatomegaly/trace ascites
LE rash
RCC s/p partial L nephrectomy 2021
Echo 12/16/24: EF 35-40% mild LVH, dilated RV and RA, dilated left atrium, mild MR, pulmonary artery systolic pressure 50-55 mmHg
Recommendations:
Acute/subacute HFrEF/anasarca with presenting proBNP of 22,500
Treat with IV furosemide, and initiate GDMT. Ultimate goal will be DARRYL/ARB or Entresto, spironolactone, and SGLT2 antagonist.
Weight is down if accurate but fluid balance is not very negative.
- Will increase IV Lasix to 80 mg twice daily
Recently initiated (12/16/24)
- Losartan 25 mg daily
- Toprol-XL 25 mg daily
CHF education
Eventual consideration for ischemic evaluation either as an inpatient or an outpatient
Anasarca with nephrotic range proteinuria
Nephrology has been consulted and evaluation underway (serologies and paraprotein w/u and consideration for eventual bx)
Defer to hospitalist regarding other potential entities such as rheumatologic conditions, cirrhosis, etc. that could be contributors.
Defer treatment of lower extremity rash to primary service
Discussed alcohol and tobacco cessation with patient
Today I also met with the patient's and his daughter who are at bedside. We had a discussion regarding his diagnoses, our evaluation process and current treatment regimen. All of their questions have been answered.
Total time spent today was 52 minutes in preparing to see the patient, seeing the patient and coordination of care. This included review of recent laboratory evaluations, cardiact testing, imaging studies, primary care rtecords, specialty
consultations, hospital records, as well as personally interviewing and examining the patient, which included discussion of their tests, review/ordering medications, and communicating with other healthcare professionals and also treatment planning
as well as counseling.
Progress Note - Drift Miner
Subjective
Date of Service: December 17, 2024
Laying in bed, tells me he feels okay. Denies shortness of breath at rest. He does tell me that over the past 1 to 2 months he has had dyspnea on exertion but no dyspnea at rest. He has no chest pain.
Objective
Labs:
12/15/24 18:45
12/17/24 07:22
Labs
Hgb 15.3 g/dL (13.0-18.0) 12/15/24 18:45
Hct 45.2 % (39.0-52.0) 12/15/24 18:45
Plt Count 218 10^3/uL (130-400) 12/15/24 18:45
Sodium 137 mmol/L (135-145) 12/17/24 07:22
Potassium 3.9 mmol/L (3.5-5.1) 12/17/24 07:22
BUN 31 mg/dl (9-20) H 12/17/24 07:22
Creatinine 1.0 mg/dL (0.7-1.3) 12/17/24 07:22
Glucose 91 mg/dl (70-99) 12/17/24 07:22
Troponins
12/15/24 12/15/24 12/15/24
21:10 21:10 22:48
Troponin I Cancelled Cancelled 0.023
12/16/24
15:49
Troponin I 0.016
Vital Signs and I&O:
Vital Signs
Temp Pulse Resp BP Pulse Ox
97.5 F 67 20 154/93 94
12/17/24 07:44 12/17/24 08:28 12/17/24 07:44 12/17/24 08:28 12/17/24 07:44
Vital Signs
Temp Pulse Resp BP Pulse Ox
97.5 F 67 20 154/93 94
12/17/24 07:44 12/17/24 08:28 12/17/24 07:44 12/17/24 08:28 12/17/24 07:44
Intake & Output
12/15/24 12/16/24 12/17/24 12/18/24
06:59 06:59 06:59 06:59
Intake Total 1000 / 1000
Output Total 750 / 750
Balance 250 / 250
Physical Exam
Physical Exam
Well-appearing no distress sitting up in bed.
Regular rate and rhythm with normal S1 and S2, no S3 no S4 is a grade 1 risks apical holosystolic murmur no rubs.
Lungs are clear to auscultation bilaterally
Abdomen soft nontender nondistended with normoactive bowel sounds.
Anasarca starting at the waist to bilateral lower extremities
[2024-12-17 11:40] VITALS: BP 149/84
[2024-12-17] MEDS: ATARAX 50 MG PO ×3 (13:07→22:20)
--- NOTE | 2024-12-17 13:15 | W.PN.NEPH.PH ---
Today's Communication / Plan
-
see plan
Assessment/Plan
-
IMP:
Acute heart failure with a reduced ejection fraction
Small bilateral pleural effusions
12/16 Echo EF 35-40%, dilated right heart w/ RV hypokinesis, mod pulm HTN
Nephrotic range Proteinuria
Micro Hematuria
History of renal cell carcinoma status post partial left nephrectomy 2021
Pruritic rash on bilateral legs, abdomen, posterior thighs and gluteal folds Status post multiple courses of antibiotics and steroids outpatient
Bilateral lower extremity edema
Chronic right lower extremity edema since right groin lymph node resection
Small volume ascites
Hepatomegaly
Daily alcohol use
Cigarette nicotine dependency
Hyponatremia
Obesity due to excess calories
Plan:
A/w new CHF, echo noted low EF
also nephrotic range proteinuria 6.2gm/gm of cr
mild microhematuria with known RCC partial nephrectomy
renal US non acute
pending serologies and paraprotein w/u
may need biopsy next week based on testing, not on ASA
gen itchy body rash not seem typical of vasculitis, no eosinophilia noted, agree with getting skin biopsy
cont IV diuretics-increased to 80BID per cards, still sig edema
Titrate losartan up as BP can tolerate
cr seem to be normal range
need to quit smoking, ETOH
Also avoid heavy protein diet
low salt diet and FR 48ounces/day
d/w pt , answered many questions
-
-
Date of Service: December 17, 2024
CC / HPI / ROS
-
Chief Complaint:
nephrotic proteinuria
History of Present Illness:
cr stable at 1
wt decreasing
BP stable, k normal
Review of Systems:
no cp , sob better
still with scrotal edema
Labs
-
Labs:
WBC 6.4 10^3/uL (4.8-10.8) 12/15/24 18:45
RBC 5.12 10^6/uL (4.70-6.10) 12/15/24 18:45
Hgb 15.3 g/dL (13.0-18.0) 12/15/24 18:45
Hct 45.2 % (39.0-52.0) 12/15/24 18:45
Plt Count 218 10^3/uL (130-400) 12/15/24 18:45
Sodium 137 mmol/L (135-145) 12/17/24 07:22
Potassium 3.9 mmol/L (3.5-5.1) 12/17/24 07:22
Chloride 103 mmol/L (98-107) 12/17/24 07:22
Carbon Dioxide 25 mmol/L (22-30) 12/17/24 07:22
BUN 31 mg/dl (9-20) H 12/17/24 07:22
Creatinine 1.0 mg/dL (0.7-1.3) 12/17/24 07:22
eGFR > 60.00 12/17/24 07:22
Glucose 91 mg/dl (70-99) 12/17/24 07:22
Calcium 8.9 mg/dl (8.4-10.2) 12/17/24 07:22
Urd-H-Jhvbrkcfbyc Pept 17166 pg/ml 12/15/24 22:48
Albumin 3.1 g/dl (3.5-5.0) L 12/16/24 04:52
Physical Exam
-
Vital Signs:
Vital Signs
Temp Pulse Resp BP Pulse Ox
97.8 F 65 20 149/84 94
12/17/24 11:40 12/17/24 11:40 12/17/24 11:40 12/17/24 11:40 12/17/24 11:40
Cardiovascular:: Regular rate and rhythm
Respiratory:: Bilateral: CTA
Lung Excursion:: Normal
Abdomen:: Nontender and Soft
Extremity Edema:: +3: Bilateral:
Lenz Catheter: No
[2024-12-17 15:33] VITALS: BP 142/81
[2024-12-17 16:18] LABS: Urine Protein 155 mg/dl (0-12)
[2024-12-17 16:33] LABS: 24 Hour Urine Total Volume 2400 ml
[2024-12-17] MEDS: LASIX 80 MG IV (17:19)
[2024-12-17] MEDS: LOVENOX 40 MG SC (17:21)
[2024-12-17 19:00] VITALS: BP 152/91
[2024-12-17] MEDS: MELATONIN 5 MG PO (22:22)
[2024-12-17 22:55] VITALS: BP 141/90; BP 160/97
[2024-12-18] VITALS (8 sets, daily range): BP systolic 141–160; BP diastolic 66–97; BMI 31.0
[2024-12-18 07:37] LABS: Blood Urea Nitrogen 35 mg/dl (9-20); Carbon Dioxide 30 mmol/L (22-30); Chloride 102 mmol/L (98-107); Estimated Creatinine Clearance 83 ml/min; Glucose 84 mg/dl (70-99); Magnesium 2.2 mg/dl (1.6-2.3); Sodium 135 mmol/L (135-145); eGFR > 60.00
--- NOTE | 2024-12-18 08:02 | W.PN.HOSP.TC ---
Addendum entered and electronically signed by Yadiel Zuniga MD 12/18/24 13:23:
Patient complaining of severe scrotal pain, will consult urology.
Original Note:
Today's Communication/Plan
-
see bold
Assessment / Plan
Assessment / Plan
HPI: 59 yo M with PMH of RCC s/p partial L nephrectomy 2021, history of lymphedema of RLE due to R groin resection, daily ETOH and tobacco use who presents to [facility] for evaluation of progressive B/L LE edema. He reports he has had some chronic RLE
edema since his R groin LN resection. He then was admitted and treated for cellulitis 07/2024. He reports ~1-2 months ago he had a respiratory infection and was taking dayquil/nyquil. He reports since then he has had progressive LE edema of both legs
into thighs, scrotum, and abdomen. He has also noted rash of legs, which is pruritic. He has been given several courses of abx and steroids. He also was started on po lasix and dose was uptitrated recently to 3x per day without improvement. PCP
ordered abd US as well as CXR and peripheral US which were completed yesterday. CXR showed B/L pleural effusions and patient was recommended coming to ER. He states he smokes 1/3-1/2 ppd and drinks 4-5 beers daily.
#Acute heart failure with a reduced ejection fraction
#Small bilateral pleural effusions
12/16 Echo EF 35-40%, dilated right heart w/ RV hypokinesis, mod pulm HTN
Appreciate cardiology input, continue Lasix 80 mg IV twice daily
Started on losartan, increase to 50 mg daily, started on Toprol XL 25 mg daily
Patient will need cardiac catheterization, either as inpatient or outpatient
Trend creatinine, trend daily weights
#Proteinuria
#Hematuria
#History of renal cell carcinoma status post partial left nephrectomy
Appreciate nephrology input, plan for renal biopsy Thursday
Follow-up on serologies
#New maculopapular rash on abdomen and right upper lateral thigh
Patient was taking amoxicillin from 12/07 - 12/14
noticed this rash on 12/14
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
Discussed with Dr. Rucker, who agrees for bedside biopsy on Thursday
Will need to reach out to surgery litigation paralegal
#Chronic rash on posterior thighs
Status post multiple courses of antibiotics and steroid cream outpatient
Rash on posterior thighs and gluteal folds appear fungal�continue fungal cream
Rash behind knee could be eczema -recommend outpatient follow-up with Derm
#Essential hypertension
Continue losartan, metoprolol, Lasix as above
#Bilateral lower extremity edema
#Chronic right lower extremity edema since right groin lymph node resection
Lower extremity Dopplers are negative
#Small volume ascites
# Hepatomegaly
Suspect secondary to alcohol use
#Daily alcohol use
Drinks 4�beers daily
Monitor for withdrawal
#Cigarette nicotine dependency
Nicotine cessation counseling
Nicotine patch as needed
#Hyponatremia
#Obesity due to excess calories
DVT prophylaxis�subcu Lovenox
Full code
Total time spent to see the patient on the floor, examine the patient, review data and lab results, discuss treatment plan with patient, nursing staff around 52 minutes.
Updated at bedside 12/18
Physical Exam
General: Obese, no acute distress
HEENT: Normocephalic, Atraumatic, EOMI, MMM
Respiratory: Clear to Auscultation bilaterally
Cardiac: Normal S1/S2, Regular Rate and Rhythm
GI: Soft, Nontender, Nondistended, Normal Bowel Sounds
Extremities: No Clubbing, Cyanosis
Bilateral lower extremity edema, right greater than left
Neuro: Nonfocal/Grossly Intact
Psych: Calm, Cooperative
Derm:
Diffuse erythematous macular papular rash on abdomen, right lateral thigh
Scaly darkened erythematous rash on posterior thighs, near gluteal fold
Erythema and edema of right groin near previous lymph node excision site
Anticipated Discharge: 24 - 48 hours
Subjective/Interval History
-
Date of Service: December 18, 2024
Patient denies chest pain, denies shortness of breath. Continues to complain of itchiness from his rash. No fever, no vomiting.
Objective Data
-
Labs:
Laboratory Results
12/18/24
06:41
Sodium 135
Potassium 4.0
Chloride 102
Carbon Dioxide 30
BUN 35 H
Creatinine 1.1
Glucose 84
Calcium 9.0
Vital Signs:
Vital Signs
Temp Pulse Resp BP Pulse Ox
97.8 F 65 12 145/92 99
12/18/24 07:44 12/18/24 07:44 12/18/24 07:44 12/18/24 07:44 12/18/24 07:44
I&O
12/17/24 12/18/24 12/19/24
06:59 06:59 06:59
Intake Total 1000 / 1000 240 / 240
Output Total 750 / 750 2550 / 2550
Balance 250 / 250 -2310 / -2310
--- NOTE | 2024-12-18 08:42 | W.PN.CARDCBS ---
Today's Communication / Plan
-
Continue diuresis
Impression / Plan
-
Primary Ceramist: none prior to admission
Assessment:
Acute decompensated HFrEF
Presentation with marked LE edema / anasarca / Hypoalbuminemia
Nephrotic range proteinuria of 6.2gm/gm of cr and alb 3.2
CLL, history of R groin LN dissection with subsequent lymphedema
Moderate pulmonary hypertension with RV dilatation and hypokinesis
Daily alcohol and tobacco use
History of renal cell carcinoma/partial nephrectomy 2021
Elevated CRP/ESR
Hepatomegaly/trace ascites
LE rash
RCC s/p partial L nephrectomy 2021
Echo 12/16/24: EF 35-40% mild LVH, dilated RV and RA, dilated left atrium, mild MR, pulmonary artery systolic pressure 50-55 mmHg
Recommendations:
Acute/subacute HFrEF/anasarca with presenting proBNP of 22,500
Treat with IV furosemide, and initiate GDMT. Ultimate goal will be DARRYL/ARB or Entresto, spironolactone, and SGLT2 antagonist.
Increase Lasix to 80 mg IV twice daily starting December 17, 2024
Fluid balance -2.3 L and weight down 4 pounds overnight 12/17 -> 2
Magnesium 2.2 potassium 4 with BUN and creatinine of 35 and 1.1
Maintain Lasix 80 mg IV BID today
Recently initiated (12/16/24)
- Losartan increased from 25 mg to 50 mg daily starting 12/17/24
- Toprol-XL 25 mg daily
CHF education
Eventual consideration for ischemic evaluation either as an inpatient or an outpatient
Hypertension
Losartan and Toprol were initiated this hospital stay
Losartan was increased to 50 mg daily starting December 17, 2024
Continue losartan and Toprol, reassess possibility for up titration tomorrow.
Anasarca with nephrotic range proteinuria
Nephrology has been consulted and evaluation underway (serologies and paraprotein w/u and consideration for eventual bx)
Defer to hospitalist regarding other potential entities such as rheumatologic conditions, cirrhosis, etc. that could be contributors.
Defer treatment of lower extremity rash to primary service
Discussed alcohol and tobacco cessation with patient
Today I also met with the patient's at bedside. We had a discussion regarding his diagnoses, our evaluation process and current treatment regimen. All of their questions have been answered.
Total time spent today was 50 minutes in preparing to see the patient, seeing the patient and coordination of care. This included review of recent laboratory evaluations, cardiac testing, imaging studies, medical records, as well as personally
interviewing and examining the patient, which included discussion of their tests, review/ordering medications, and communicating with other healthcare professionals and also treatment planning as well as counseling.
Progress Note - Ceramist
Subjective
Date of Service: December 18, 2024
He tells me that he feels little stronger today. Laying in bed, tells me he feels okay. Denies shortness of breath at rest. He does tell me that over the past 1 to 2 months he has had dyspnea on exertion but no dyspnea at rest. He has no chest
pain.
Objective
Labs:
12/15/24 18:45
12/18/24 06:41
Labs
Hgb 15.3 g/dL (13.0-18.0) 12/15/24 18:45
Hct 45.2 % (39.0-52.0) 12/15/24 18:45
Plt Count 218 10^3/uL (130-400) 12/15/24 18:45
Sodium 135 mmol/L (135-145) 12/18/24 06:41
Potassium 4.0 mmol/L (3.5-5.1) 12/18/24 06:41
BUN 35 mg/dl (9-20) H 12/18/24 06:41
Creatinine 1.1 mg/dL (0.7-1.3) 12/18/24 06:41
Glucose 84 mg/dl (70-99) 12/18/24 06:41
Troponins
12/15/24 12/15/24 12/15/24
21:10 21:10 22:48
Troponin I Cancelled Cancelled 0.023
12/16/24
15:49
Troponin I 0.016
Vital Signs and I&O:
Vital Signs
Temp Pulse Resp BP Pulse Ox
97.8 F 65 12 145/92 99
12/18/24 07:44 12/18/24 07:44 12/18/24 07:44 12/18/24 07:44 12/18/24 07:44
Vital Signs
Temp Pulse Resp BP Pulse Ox
97.8 F 65 12 145/92 99
12/18/24 07:44 12/18/24 07:44 12/18/24 07:44 12/18/24 07:44 12/18/24 07:44
Intake & Output
12/16/24 12/17/24 12/18/24 12/19/24
06:59 06:59 06:59 06:59
Intake Total 1000 / 1000 240 / 240
Output Total 750 / 750 2550 / 2550
Balance 250 / 250 -2310 / -2310
Physical Exam
Physical Exam
Well-appearing no distress sitting up in bed.
Regular rate and rhythm with normal S1 and S2, no S3 no S4 is a grade 1 risks apical holosystolic murmur no rubs.
Lungs are clear to auscultation bilaterally
Abdomen soft nontender nondistended with normoactive bowel sounds.
Anasarca starting at the waist to bilateral lower extremities
[2024-12-18] MEDS: COZAAR 50 MG PO (08:47)
[2024-12-18] MEDS: ATARAX 50 MG PO ×3 (08:47→21:56)
[2024-12-18] MEDS: TOPROL XL 25 MG PO (08:47)
[2024-12-18] MEDS: FOLVITE 1 MG PO (08:47)
[2024-12-18] MEDS: NICODERM TRANSDERMAL 14 MG TRANSDERM (08:47)
[2024-12-18] MEDS: LASIX 80 MG IV ×2 (08:48→17:29)
[2024-12-18] MEDS: THIAMINE INJECTION 200 MG IV ×2 (08:48→20:44)
[2024-12-18] MEDS: HYDROPHOR 1 APPLIC TOPICAL ×2 (08:49→20:42)
[2024-12-18] MEDS: NIZORAL 2% CREAM 1 APPLIC TOPICAL ×2 (08:50→20:42)
[2024-12-18] MEDS: DESENEX/MITRAZOL/ZEASORB 1 APPLIC TOPICAL ×2 (08:50→20:42)
[2024-12-18] MEDS: MIRALAX 17 GRAMS PO (12:35)
[2024-12-18 13:12] LABS: ANA, IgG Reflex to HEp-2 None Detected (None Detected)
--- NOTE | 2024-12-18 15:09 | W.PN.NEPH.PH ---
Today's Communication / Plan
-
metolazone today, K biopsy tomorrow
cont lasix
Assessment/Plan
-
IMP:
Acute heart failure with a reduced ejection fraction
Small bilateral pleural effusions
12/16 Echo EF 35-40%, dilated right heart w/ RV hypokinesis, mod pulm HTN
Nephrotic range Proteinuria
Micro Hematuria
History of renal cell carcinoma status post partial left nephrectomy 2021
Pruritic rash on bilateral legs, abdomen, posterior thighs and gluteal folds Status post multiple courses of antibiotics and steroids outpatient
Bilateral lower extremity edema
Chronic right lower extremity edema since right groin lymph node resection
Small volume ascites
Hepatomegaly
Daily alcohol use
Cigarette nicotine dependency
Hyponatremia
Obesity due to excess calories
Plan:
A/w new CHF, echo noted low EF
also nephrotic range proteinuria 6.2gm/gm of cr, 24hr urine 3.7gm
mild microhematuria with known RCC partial nephrectomy
renal US non acute
pending serologies and paraprotein w/u
plan Kidney biopsy tomorrow, not on ASA-IR notified
gen itchy body rash not seem typical of vasculitis, no eosinophilia noted, agree with getting skin biopsy
cont IV diuretics lasix 80BID per cards, still sig edema -add metolazone 2.5mg
Titrate losartan up as BP can tolerate
cr seem to be normal range
need to quit smoking, ETOH
Also avoid heavy protein diet
low salt diet and FR 48ounces/day
d/w pt , and
d/w nursing
-
-
Date of Service: December 18, 2024
CC / HPI / ROS
-
Chief Complaint:
nephrotic proteinuria
History of Present Illness:
cr stable at 1
wt decreasing but slow
BP stable, k normal
Review of Systems:
no cp , sob better
still with sig scrotal edema
Labs
-
Labs:
WBC 6.4 10^3/uL (4.8-10.8) 12/15/24 18:45
RBC 5.12 10^6/uL (4.70-6.10) 12/15/24 18:45
Hgb 15.3 g/dL (13.0-18.0) 12/15/24 18:45
Hct 45.2 % (39.0-52.0) 12/15/24 18:45
Plt Count 218 10^3/uL (130-400) 12/15/24 18:45
Sodium 135 mmol/L (135-145) 12/18/24 06:41
Potassium 4.0 mmol/L (3.5-5.1) 12/18/24 06:41
Chloride 102 mmol/L (98-107) 12/18/24 06:41
Carbon Dioxide 30 mmol/L (22-30) 12/18/24 06:41
BUN 35 mg/dl (9-20) H 12/18/24 06:41
Creatinine 1.1 mg/dL (0.7-1.3) 12/18/24 06:41
eGFR > 60.00 12/18/24 06:41
Glucose 84 mg/dl (70-99) 12/18/24 06:41
Calcium 9.0 mg/dl (8.4-10.2) 12/18/24 06:41
Xzc-E-Qmflogkpgpz Pept 77719 pg/ml 12/15/24 22:48
Albumin 3.1 g/dl (3.5-5.0) L 12/16/24 04:52
Physical Exam
-
Vital Signs:
Vital Signs
Temp Pulse Resp BP Pulse Ox
97.4 F 64 20 142/76 97
12/18/24 11:20 12/18/24 11:20 12/18/24 11:20 12/18/24 11:20 12/18/24 11:20
Cardiovascular:: Regular rate and rhythm
Respiratory:: Bilateral: CTA
Lung Excursion:: Normal
Abdomen:: Nontender and Soft
Extremity Edema:: +3: Bilateral:
Lenz Catheter: No
Other Findings::
scrotal edema noted
--- NOTE | 2024-12-18 15:26 | CM ---
CM following re: d/c planning.
CM completed IA with pt.
He states he resides in the home with his .
He is independent with mobility and ADLs.
He denies DME or VN.
Pt is driving.
PCP is Dr. Mcneill and pharmacy is [facility] in [place].
He does not anticipate any d/c needs.
Wound care on board.
CM will continue to follow.
[2024-12-18] MEDS: ZAROXOLYN 2.5 MG PO (16:14)
[2024-12-18] MEDS: LOVENOX 40 MG SC (17:29)
[2024-12-18] MEDS: MELATONIN 5 MG PO (21:56)
[2024-12-19] VITALS (7 sets, daily range): BP systolic 59–155; BP diastolic 79–90
--- NOTE | 2024-12-19 08:06 | W.PN.CARDCBS ---
Today's Communication / Plan
-
Add spironolactone if okay with renal
Will transition to oral furosemide in a.m. if okay with renal
Increase losartan 100 mg daily
I favor outpatient sestamibi study to rule out severe underlying CAD
Impression / Plan
-
Primary Press Box Custodian: none prior to admission
Assessment:
Acute HFrEF, initial proBNP 22,500 with marked LE edema / anasarca / Hypoalbuminemia
Nephrotic range proteinuria of 6.2gm/gm of cr and alb 3.2
CLL, history of R groin LN dissection with subsequent lymphedema
Moderate pulmonary hypertension with RV dilatation and hypokinesis
Daily alcohol and tobacco use
History of renal cell carcinoma/partial nephrectomy 2021
Elevated CRP/ESR
Hepatomegaly/trace ascites
LE rash
RCC s/p partial L nephrectomy 2021
Suspected vasculitis
Echo 12/16/24: EF 35-40% mild LVH, dilated RV and RA, dilated left atrium, mild MR, pulmonary artery systolic pressure 50-55 mmHg
Recommendations:
Overall he looks much better from a volume standpoint. Acute HFrEF seems resolved. Still mildly volume overloaded. Will switch to oral furosemide in the
a.m or per nephrology.
Management of suspected nephrotic syndrome, possible cirrhosis per neurology.
Regarding LV dysfunction, currently on losartan and metoprolol. Heart rate is good. He is still somewhat hypertensive, will increase losartan to 100 mg daily. Add spironolactone 12.5 mg daily if okay with nephrology.
Will likely add Farxiga if renal function remains stable and nephrology agrees.
Patient for renal biopsy and skin biopsy later today in the setting of CLL and evidence of vasculitis.
Suspicion for severe underlying CAD is relatively low, so I would probably favor stress testing over cardiac catheterization, to be performed as an outpatient. However catheterization would be a reasonable option.
Avoidance of EtOH and tobacco stressed the patient
Progress Note - Press Box Custodian
Subjective
Date of Service: December 19, 2024:
59-year-old man admitted with newly diagnosed HFrEF in the setting could be alcoholic cardiomyopathy.
Currently he feels well, is scheduled for renal biopsy and skin biopsy later today. His weight is down well in excess of 22-25 pounds. Still feels he is volume overloaded.
PMH: Renal cell carcinoma/partial 2021, CLL with right groin dissection, nephrotic range proteinuria
Current meds: Lovenox, metoprolol ER 25 mg a day, nicotine patch, thiamine, furosemide 80 IV twice daily, Atarax, losartan,, not yet on SGLT2 antagonist MRA
150/85, 61, 16, afebrile, weight is 94.8 kg, if accurate was 105 kg on admission, intake and output -1.8 L, still with 1+ edema neck veins are okay, he has a rash, head neck exam unremarkable, no distress
ECG December 17: Sinus rhythm, first-degree AV block, right bundle branch block, PVC
Labs are pending, yesterday BUN and creatinine were 35 and 1.1 with a potassium of 4.
Objective
Labs:
12/15/24 18:45
Labs
Hgb 15.3 g/dL (13.0-18.0) 12/15/24 18:45
Hct 45.2 % (39.0-52.0) 12/15/24 18:45
Plt Count 218 10^3/uL (130-400) 12/15/24 18:45
Sodium 135 mmol/L (135-145) 12/18/24 06:41
Potassium 4.0 mmol/L (3.5-5.1) 12/18/24 06:41
BUN 35 mg/dl (9-20) H 12/18/24 06:41
Creatinine 1.1 mg/dL (0.7-1.3) 12/18/24 06:41
Glucose 84 mg/dl (70-99) 12/18/24 06:41
Troponins
12/16/24
15:49
Troponin I 0.016
Vital Signs and I&O:
Vital Signs
Temp Pulse Resp BP Pulse Ox
36.3 C 61 17 150/85 96
12/19/24 07:54 12/19/24 07:54 12/19/24 07:54 12/19/24 07:54 12/19/24 07:54
Vital Signs
Temp Pulse Resp BP Pulse Ox
36.3 C 61 17 150/85 96
12/19/24 07:54 12/19/24 07:54 12/19/24 07:54 12/19/24 07:54 12/19/24 07:54
Intake & Output
12/17/24 12/18/24 12/19/24 12/20/24
07:59 07:59 07:59 07:59
Intake Total 1000 / 1000 240 / 240 720 / 720
Output Total 750 / 750 2550 / 2550 2475 / 2475
Balance 250 / 250 -2310 / -2310 -1755 / -1755
Physical Exam
Physical Exam
See above
--- NOTE | 2024-12-19 08:42 | CONS.URO ---
Consultation
-
Date/Time Consultation Performed: 12/19/24 0810
Performing Provider: Alexis
Reason for Consultation: scrotal swelling
Medical History
History of Present Illness
59 yo mal has been dealing with intermittent swelling for the last 1 year. Over the last few weeks she has had bilateral lower extremity swelling, abdominal swelling and scrotal edema without pain nausea or vomiting, mild dyspnea on exertion and
some shortness of breath. He has fatigue. Family noticed increased facial swelling as well.
s/p left partial nephrectomy for RCCa
Past Medical History
Past Medical History: Other (LL, Renal Cell Ca s/p nephrectomy), HTN and NIDDM)
Past Surgical History: Urological (robotic left partial nephrectomy - 2021) and Other (umbilical hernia repair)
Allergies/Home Medications
Allergies
Allergy/AdvReac Type Severity Reaction Status Date / Time
No Known Allergies Allergy Verified 12/15/24 18:03
Home Medications
�Medication �Instructions �Recorded �Confirmed �Type
furosemide 20 mg tablet (Lasix) 20 mg PO BID Fluid 07/30/24 12/16/24 History
Retention/Swelling
Physical Exam
Vital Signs
Vital Signs
Temp Pulse Resp BP Pulse Ox
97.4 F 61 17 150/85 96
12/19/24 07:54 12/19/24 07:54 12/19/24 07:54 12/19/24 07:54 12/19/24 07:54
Lab / Testing Results
Laboratory Results
12/15/24 18:45
Physical Exam
adult male asleep unpon room entry
General: No Apparent Distress and Comfortable
Genito-urinary: Other (peno-scrotal edema)
Psych: Calm
Assessment / Plan
-
scrotal edema -- reflective of anasarca
tx anasarca and scrotal edema will gradually resolve
Data Reviewed
-
Ultrasound: Image personally visualized and interpreted
Lab Data: Labs Reviewed
Old Records: Reviewed
[2024-12-19] MEDS: ATARAX 50 MG PO ×3 (09:40→22:13)
[2024-12-19] MEDS: FOLVITE 1 MG PO (09:40)
[2024-12-19] MEDS: LASIX 80 MG IV ×2 (09:40→17:29)
[2024-12-19] MEDS: TOPROL XL 25 MG PO (09:40)
[2024-12-19] MEDS: ALDACTONE 12.5 MG PO (09:40)
[2024-12-19] MEDS: HYDROPHOR 1 APPLIC TOPICAL ×2 (09:41→22:19)
[2024-12-19] MEDS: THIAMINE INJECTION 200 MG IV (09:41)
[2024-12-19] MEDS: DESENEX/MITRAZOL/ZEASORB 1 APPLIC TOPICAL ×2 (09:42→22:19)
[2024-12-19] MEDS: MIRALAX PO (09:43)
[2024-12-19] MEDS: NICODERM TRANSDERMAL 14 MG TRANSDERM (09:43)
[2024-12-19] MEDS: NIZORAL 2% CREAM 1 APPLIC TOPICAL ×2 (09:44→22:19)
[2024-12-19] MEDS: COZAAR 50 MG PO ×2 (09:45)
--- NOTE | 2024-12-19 09:57 | CON.GS ---
Addendum entered and electronically signed by Bhavesh Valdez MD 12/19/24 13:37:
Specimen sent.
Patient can follow-up with me as needed.
Surgery will sign off for now please call with any questions or concerns.
Original Note:
Consultation
-
Date/Time Consultation Requested: 12/16/2024 at 5 PM
Date/Time Consultation Performed: 12/19/2024 at 8 AM
Requesting Provider: Dr. Zuniga
Performing Provider: Dr. Valdez
Reason for Consultation: Skin biopsy
Medical History
-
Chief Complaint: Abdominal and lower extremity rash
History of Present Illness:
This is a 59-year-old male with a history of renal cell cancer who is actually known to me for a lymph node biopsy back in May 2023 which was done to workup lower extremity swelling, found to have CLL who presented to our hospital on 12/15/2024 for
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 General surgery
consulted for biopsy.
Past Medical History
Past Medical History: Other (Renal cell cancer status post nephrectomy, CLL, hypertension, diabetes)
Past Surgical History: Other (Partial nephrectomy)
Social History
Tobacco: Smoker
Alcohol: Daily
Drug: None
Personal:
Living: With Family
Family History
Family History: Reviewed & Not Pertinent
Allergies / Home Medications
Allergy/AdvReac Type Severity Reaction Status Date / Time
No Known Allergies Allergy Verified 12/15/24 18:03
�Medication �Instructions �Recorded �Confirmed �Type
furosemide 20 mg tablet (Lasix) 20 mg PO BID Fluid 07/30/24 12/16/24 History
Retention/Swelling
Review of Systems
-
All other systems: Negative unless noted
A 10 point review of systems was completed, and was negative except as per HPI.
Physical Exam
Vital Signs
Temp Pulse Resp BP Pulse Ox
97.4 F 61 17 150/85 96
12/19/24 07:54 12/19/24 07:54 12/19/24 07:54 12/19/24 07:54 12/19/24 07:54
12/18/24 12/19/24 12/20/24
06:59 06:59 06:59
Actual Weight 98.089 kg 94.829 kg
Body Mass Index (BMI) 30.0
Lab Results
WBC 6.4 10^3/uL (4.8-10.8) 12/15/24 18:45
Hgb 15.3 g/dL (13.0-18.0) 12/15/24 18:45
Hct 45.2 % (39.0-52.0) 12/15/24 18:45
Plt Count 218 10^3/uL (130-400) 12/15/24 18:45
Abs Immat Gran (auto) 0.0 10^3/uL (0-0.05) 12/15/24 18:45
Neutrophils % 78.0 % (42.2-75.2) H 12/15/24 18:45
Physical Exam
General: Well Developed
HEENT: Normocephalic
Respiratory: Non Labored Respirations
GI: Soft and Obese
Skin: Other (Raised maculopapular rash over the abdomen and bilateral upper extremities)
Neuro: AO x 3
Hematologic/Lymphatic: Lymphadenopathy
Data Reviewed
-
Medical Tests (Nuc Med, Echo etc): Report Reviewed by me
Labs: Labs Reviewed by me and Discussed with Patient
Total Time Spent with Patient (in minutes): 35
Assessment / Plan
-
This is a 59-year-old male with a symptomatic new onset rash on his abdomen and upper extremities. General surgery consulted to obtain a skin biopsy.
Will obtain a skin biopsy at the bedside under local today. See separate note
Wounds should heal by secondary intention. And cover with gauze and secure in place with kerlix to avoid adhesive over this sensitive area of skin. An Rodger wrap was placed postprocedure but this does not to be worn for an extended period of time as
it is just to help with compression and hemostasis.
Risks/Benefits/Alternatives, expected postoperative course and possible complications (bleeding, infection, injury to surrounding structures, acute/chronic pain) discussed at length. Patient wishes to proceed with surgery. All questions answered.
Verbal consent obtained.
I spent 60 minutes in total for the care of this patient today including direct patient care and counseling, reviewing labs, imaging, coordination of care, as well as documentation.
[2024-12-19 10:05] LABS: Albumin 3.7 g/dl (3.5-5.0); Blood Urea Nitrogen 29 mg/dl (9-20); Calcium 8.6 mg/dl (8.4-10.2); Carbon Dioxide 30 mmol/L (22-30); Chloride 102 mmol/L (98-107); Estimated Creatinine Clearance 80 ml/min; Glucose 82 mg/dl (70-99); Magnesium 2.3 mg/dl (1.6-2.3); Potassium 3.8 mmol/L (3.5-5.1); Sodium 142 mmol/L (135-145); eGFR > 60.00
[2024-12-19 10:15] LABS: % Basophils 1.2 % (0-2); % Eosinophils 2.8 % (0-6); % Immature Granulocytes 0.2 % (0-0.5); % Lymphocytes 12.9 % (20.5-51.1); % Monocytes 12.7 % (1.7-9.3); % Neutrophils 70.2 % (42.2-75.2); Absolute Basophils 0.1 10^3/uL (0-0.2); Absolute Eosinophils 0.1 10^3/uL (0-0.7); Absolute Lymphocytes 0.6 10^3/uL (1.2-3.4); Absolute Monocytes 0.5 10^3/uL (0.1-0.6); Hematocrit 45.7 % (39.0-52.0); Mean Corp Hgb Conc. 32.8 g/dL (33.0-37.0); Mean Corpuscular Hgb 29.9 pg (27.0-31.0); Mean Corpuscular Volume 91.2 fL (80.0-94.0); Mean Platelet Volume 11.5 fL (7.4-10.4); Nucleated Red Blood Cells % 0 % (-); Platelet Count 208 10^3/uL (130-400); Red Blood Cell Count 5.01 10^6/uL (4.70-6.10); Red Cell Dist. Width 13.8 % (11.5-14.5); White Blood Cell Count 4.3 10^3/uL (4.8-10.8)
--- NOTE | 2024-12-19 10:30 | W.PN.SURGUPD ---
Surgical Update
Surgical Update
Bedside skin biopsy
A team time-out was performed confirming the location/laterality of the procedure, consent and allergies reviewed.
Location: Right lower extremity
Dimensions: 0.5cm x2
Local: 1% Lidocaine without epinephrine
Production Support Specialist: Dee
The skin was cleaned with alcohol and anesthetized with lidocaine. A 3 mm punch biopsy was made over the skin at 2 discrete locations on the right anterior upper thigh and dissection carried down through subcutaneous tissue. The biopsies were
removed entirely and placed in a specimen jar . The wound was irrigated with sterile saline. Hemostasis was obtained. There was minimal blood loss. The skin was left open and covered with gauze followed by an Rodger wrap. The specimen was sent for
pathology. The patient tolerated the procedure well, discharge instructions reviewed and all questions were answered.
--- NOTE | 2024-12-19 11:19 | PTCARENOTE ---
Right thigh skin biopsy(pathology) send to lab with printed order.
[2024-12-19 11:24] LABS: INR 1.02; PT 13.7 Sec (11.4-14.6)
--- NOTE | 2024-12-19 12:45 | W.PN.NEPH.PH ---
Today's Communication / Plan
-
For renal biopsy today
Follow H&H postprocedure
Maintain IV Lasix 80 mg twice daily for gross volume overload
Status post skin biopsy also performed
Assessment/Plan
-
IMP:
Acute heart failure with a reduced ejection fraction
Small bilateral pleural effusions
12/16 Echo EF 35-40%, dilated right heart w/ RV hypokinesis, mod pulm HTN
Nephrotic range Proteinuria
Micro Hematuria
History of renal cell carcinoma status post partial left nephrectomy 2021
Pruritic rash on bilateral legs, abdomen, posterior thighs and gluteal folds Status post multiple courses of antibiotics and steroids outpatient
Bilateral lower extremity edema
Chronic right lower extremity edema since right groin lymph node resection
Small volume ascites
Hepatomegaly
Daily alcohol use
Cigarette nicotine dependency
Hyponatremia
Obesity due to excess calories
Plan:
For renal biopsy today
follow h/h post
A/w new CHF, echo noted low EF
also nephrotic range proteinuria 6.2gm/gm of cr, 24hr urine 3.7gm
mild microhematuria with known RCC partial nephrectomy
renal US non acute
pending serologies and paraprotein w/u
plan Kidney biopsy tomorrow, not on ASA-IR notified
gen itchy body rash not seem typical of vasculitis, no eosinophilia noted, agree with getting skin biopsy
cont IV diuretics lasix 80BID per cards, still sig edema -add metolazone 2.5mg
Titrate losartan up as BP can tolerate
cr seem to be normal range
need to quit smoking, ETOH
Also avoid heavy protein diet
low salt diet and FR 48ounces/day
d/w pt , and
-
-
Date of Service: December 19, 2024
CC / HPI / ROS
-
Chief Complaint:
nephrotic proteinuria
History of Present Illness:
cr stable at 1
Hemodynamically stable
Status post skin punch biopsy
Review of Systems:
no cp , sob better
Weights down
still with sig scrotal edema
Profound global rash
Labs
-
Labs:
WBC 4.3 10^3/uL (4.8-10.8) L 12/19/24 08:41
RBC 5.01 10^6/uL (4.70-6.10) 12/19/24 08:41
Hgb 15.0 g/dL (13.0-18.0) 12/19/24 08:41
Hct 45.7 % (39.0-52.0) 12/19/24 08:41
Plt Count 208 10^3/uL (130-400) 12/19/24 08:41
Sodium Cancelled 12/19/24 09:41
Potassium Cancelled 12/19/24 09:41
Chloride Cancelled 12/19/24 09:41
Carbon Dioxide Cancelled 12/19/24 09:41
BUN Cancelled 12/19/24 09:41
Creatinine Cancelled 12/19/24 09:41
eGFR Cancelled 12/19/24 09:41
Glucose Cancelled 12/19/24 09:41
Calcium Cancelled 12/19/24 09:41
Phosphorus 5.0 mg/dl (2.5-4.5) H 12/19/24 08:41
Pgb-V-[place] Pept 32349 pg/ml 12/15/24 22:48
Albumin 3.7 g/dl (3.5-5.0) 12/19/24 08:41
Physical Exam
-
Vital Signs:
Vital Signs
Temp Pulse Resp BP Pulse Ox
97.4 F 63 17 149/90 99
12/19/24 11:54 12/19/24 11:54 12/19/24 11:54 12/19/24 11:54 12/19/24 11:54
Cardiovascular:: Regular rate and rhythm
Respiratory:: Bilateral: CTA
Lung Excursion:: Normal
Abdomen:: Nontender and Soft
Extremity Edema:: +3: Bilateral:
Lenz Catheter: No
Other Findings::
scrotal edema noted
[2024-12-19] MEDS: APRESOLINE 5 MG IV (13:10)
--- NOTE | 2024-12-19 13:10 | W.PN.HOSP.TC ---
Today's Communication/Plan
-
Continue antihypertensives
Unclear why he has proteinuria
Could not undergo biopsy today
Will discuss with nephrology
Assessment / Plan
Assessment / Plan
HPI: 59 yo M with PMH of RCC s/p partial L nephrectomy 2021, history of lymphedema of RLE due to R groin resection, daily ETOH and tobacco use who presents to [facility] for evaluation of progressive B/L LE edema. He reports he has had some chronic RLE
edema since his R groin LN resection. He then was admitted and treated for cellulitis 07/2024. He reports ~1-2 months ago he had a respiratory infection and was taking dayquil/nyquil. He reports since then he has had progressive LE edema of both legs
into thighs, scrotum, and abdomen. He has also noted rash of legs, which is pruritic. He has been given several courses of abx and steroids. He also was started on po lasix and dose was uptitrated recently to 3x per day without improvement. PCP
ordered abd US as well as CXR and peripheral US which were completed yesterday. CXR showed B/L pleural effusions and patient was recommended coming to ER. He states he smokes 1/3-1/2 ppd and drinks 4-5 beers daily.
IR could not do biopsy because patient was moving around too manage and uncooperative
On examination awake alert he does not remember what happened he last remembers going to sleep
Cardiovascular system S1-S2 appreciated, short systolic murmur at apex
Chest clear to auscultation
Skin diffuse maculopapular rash abdomen, bilateral lower extremities upper extremities
#Acute heart failure with a reduced ejection fraction
#Small bilateral pleural effusions
12/16 Echo EF 35-40%, dilated right heart w/ RV hypokinesis, mod pulm HTN
Appreciate cardiology input, continue Lasix 80 mg IV twice daily
Continue on losartan 100 mg mg daily, started on Toprol XL 25 mg daily, Aldactone 12.5 mg daily
Patient will need cardiac catheterization, either as inpatient or outpatient
Trend creatinine, trend daily weights
# Nephrotic range proteinuria
#Hematuria
#History of renal cell carcinoma status post partial left nephrectomy 2021
Patient could not get biopsy today
Follow-up on serologies
#New maculopapular rash on abdomen and right upper lateral thigh
Patient was taking amoxicillin from 12/07 - 12/14
noticed this rash on 12/14
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
Status post skin biopsy
#Chronic rash on posterior thighs
Status post multiple courses of antibiotics and steroid cream outpatient
Rash on posterior thighs and gluteal folds appear fungal�continue fungal cream
Rash behind knee could be eczema -recommend outpatient follow-up with Derm-I encouraged to schedule an appointment now
#Essential hypertension
Continue losartan, metoprolol, Lasix as above
#Bilateral lower extremity edema
#Chronic right lower extremity edema since right groin lymph node resection
Lower extremity Dopplers are negative
#Small volume ascites
# Hepatomegaly
Suspect secondary to alcohol use
#Daily alcohol use
Drinks 4�beers daily
Monitor for withdrawal
Thiamine
#Cigarette /nicotine dependency
Nicotine cessation counseling
Nicotine patch as needed
#Hyponatremia
#Obesity due to excess calories
#DVT prophylaxis�subcu Lovenox-to be held as patient is going for renal biopsy.
#Full code
discussed with IR
Discussed with nursing
Discussed with and daughter at bedside
Anticipated Discharge: 24 - 48 hours
Subjective/Interval History
-
Date of Service: December 19, 2024
Objective Data
-
Labs:
Laboratory Results
12/19/24 12/19/24 12/19/24
08:41 09:41 10:49
WBC 4.3 L
Hgb 15.0
Hct 45.7
Plt Count 208
PT 13.7
INR 1.02
Sodium 142 Cancelled
Potassium 3.8 Cancelled
Chloride 102 Cancelled
Carbon Dioxide 30 Cancelled
BUN 29 H Cancelled
Creatinine 1.0 Cancelled
Glucose 82 Cancelled
Calcium 8.6 Cancelled
Vital Signs:
Vital Signs
Temp Pulse Resp BP Pulse Ox
97.4 F 63 17 149/90 99
12/19/24 11:54 12/19/24 11:54 12/19/24 11:54 12/19/24 11:54 12/19/24 11:54
I&O
12/18/24 12/19/24 12/20/24
06:59 06:59 06:59
Intake Total 240 / 240 720 / 720
Output Total 2550 / 2550 2475 / 2475
Balance -2310 / -2310 -1755 / -1755
--- NOTE | 2024-12-19 13:27 | CM ---
Patient seen bedside.
Denies home care needs at this time.
Plan: home no needs.
--- NOTE | 2024-12-19 15:18 | W.PN.UPDATE ---
Update Note
Progress Note Update
Seen in IR for attempted renal biopsy. Pt unable to remain motionless for the procedure, moving arms and legs as well as striking my arm, while holding needle, with his elbow. Procedure was therefore aborted.
--- NOTE | 2024-12-19 15:35 | PTCARENOTE ---
Received patient from IR. Patient is confused as to what happened in IR and why the procedure was not done. RN explained to patient and family that procedure would be done tomorrow. NPO after mn and patient may eat now. Peanut butter, crackers and
rose bruce given to patient. Patient is AAOx3, no c/o pain and ambulating in room with a steady gait.
[2024-12-19] MEDS: LOVENOX 40 MG SC (17:28)
[2024-12-19 18:59] LABS: Complement C3 102 mg/dl (88-165)
[2024-12-19] MEDS: MELATONIN 5 MG PO (22:13)
[2024-12-19] MEDS: VITAMIN B1 100 MG PO (22:13)
[2024-12-20] VITALS (22 sets, daily range): BP systolic 58–157; BP diastolic 69–99; BMI 28.8
[2024-12-20 00:41] LABS: Myeloperoxidase Antibody 0 AU/mL (0-19); Serine Protease-3, IgG 0 AU/mL (0-19)
[2024-12-20 06:37] LABS: Hemoglobin 14.3 g/dL (13.0-18.0)
[2024-12-20 07:02] LABS: Blood Urea Nitrogen 30 mg/dl (9-20); Calcium 8.7 mg/dl (8.4-10.2); Carbon Dioxide 29 mmol/L (22-30); Chloride 100 mmol/L (98-107); Estimated Creatinine Clearance 80 ml/min; Glucose 92 mg/dl (70-99); Potassium 3.5 mmol/L (3.5-5.1); Sodium 136 mmol/L (135-145); eGFR > 60.00
[2024-12-20] MEDS: NICODERM TRANSDERMAL 14 MG TRANSDERM (08:45)
[2024-12-20] MEDS: TOPROL XL 25 MG PO (08:46)
[2024-12-20] MEDS: ATARAX 50 MG PO ×2 (08:46→21:56)
[2024-12-20] MEDS: ALDACTONE 12.5 MG PO (08:46)
[2024-12-20] MEDS: LASIX 80 MG PO (08:46)
[2024-12-20] MEDS: COZAAR 100 MG PO (08:46)
[2024-12-20] MEDS: VITAMIN B1 100 MG PO ×2 (08:46→21:56)
[2024-12-20] MEDS: MIRALAX PO (08:46)
[2024-12-20] MEDS: HYDROPHOR 1 APPLIC TOPICAL ×2 (08:48→21:55)
[2024-12-20] MEDS: NIZORAL 2% CREAM 1 APPLIC TOPICAL ×2 (08:49→21:55)
[2024-12-20] MEDS: DESENEX/MITRAZOL/ZEASORB 1 APPLIC TOPICAL ×2 (08:49→21:55)
[2024-12-20] MEDS: FOLVITE 1 MG PO (08:50)
--- NOTE | 2024-12-20 09:14 | W.PN.CARDCBS ---
Today's Communication / Plan
-
See above
Impression / Plan
-
Primary Fire Inspector: none prior to admission
Assessment:
Acute HFrEF, initial proBNP 22,500 with marked LE edema / anasarca / Hypoalbuminemia
Nephrotic range proteinuria of 6.2gm/gm of cr and alb 3.2
CLL, history of R groin LN dissection with subsequent lymphedema
Moderate pulmonary hypertension with RV dilatation and hypokinesis
Daily alcohol and tobacco use
History of renal cell carcinoma/partial nephrectomy 2021
Elevated CRP/ESR
Hepatomegaly/trace ascites
LE rash
RCC s/p partial L nephrectomy 2021
Suspected vasculitis
Echo 12/16/24: EF 35-40% mild LVH, dilated RV and RA, dilated left atrium, mild MR, pulmonary artery systolic pressure 50-55 mmHg
Recommendations:
He looks much better, has lost an additional 6 pounds, could conceivably still be slightly above dry weight. He is fairly prerenal at present, with a BUN of 30 and a creatinine of 1. Furosemide is currently 80 mg po a day. We can decide if
furosemide needs to be uptitrated as outpatient.
Now on spironolactone as well as metoprolol and losartan. Will add Farxiga presuming that cost is not prohibitive.
We could consider Entresto in place of ARB. Will reassess as outpatient.
Blood pressure is reasonable.
Second attempt at renal biopsy later today.
From cardiac standpoint likely okay for discharge in 24 to 48 hours.
I discussed with patient and .
Progress Note - Fire Inspector
Subjective
Date of Service: December 20, 2024:
59-year-old man with history of renal cell carcinoma and left partial nephrectomy 2021, CLL with lymphedema following right inguinal lymph node biopsy, history of daily EtOH and tobacco use admitted with HFrEF. He has 4-5 beers daily and has a
proBNP of 22,500. He had skin biopsy and renal biopsy yesterday
He feels well. Renal biopsy was unsuccessful yesterday related to agitation on the part of the patient.
Current medications: Enoxaparin 40 mg a day, metoprolol ER 25 mg a day, nicotine transdermal patch, folate, thiamine, losartan 100 mg a day, spironolactone 12.5 mg a day, furosemide 80 mg a day
Weight is 90.9 kg, was 94.8 kg yesterday, admission weight was 105 kg, 133/77 pulse 64, respirate 16, afebrile, blood pressure up to 155/90, no distress, still with rash, still with 1+ edema, lungs are clear regular rate and rhythm without obvious
murmur
LDL was 67 on December 17, total cholesterol 146, triglycerides 86
Today BUN and creatinine 30 and 1.0, potassium 3.5, hemoglobin 14.3
Objective
Labs:
12/20/24 06:12
12/20/24 06:12
Labs
Hgb 14.3 g/dL (13.0-18.0) 12/20/24 06:12
Hct 45.7 % (39.0-52.0) 12/19/24 08:41
Plt Count 208 10^3/uL (130-400) 12/19/24 08:41
PT 13.7 Sec (11.4-14.6) 12/19/24 10:49
INR 1.02 12/19/24 10:49
Sodium 136 mmol/L (135-145) 12/20/24 06:12
Potassium 3.5 mmol/L (3.5-5.1) 12/20/24 06:12
BUN 30 mg/dl (9-20) H 12/20/24 06:12
Creatinine 1.0 mg/dL (0.7-1.3) 12/20/24 06:12
Glucose 92 mg/dl (70-99) 12/20/24 06:12
Vital Signs and I&O:
Vital Signs
Temp Pulse Resp BP Pulse Ox
36.4 C 64 16 133/77 97
12/20/24 08:24 12/20/24 08:24 12/20/24 08:24 12/20/24 08:24 12/20/24 08:24
Vital Signs
Temp Pulse Resp BP Pulse Ox
36.4 C 64 16 133/77 97
12/20/24 08:24 12/20/24 08:24 12/20/24 08:24 12/20/24 08:24 12/20/24 08:24
Intake & Output
12/18/24 12/19/24 12/20/24 12/21/24
07:59 07:59 07:59 07:59
Intake Total 240 / 240 720 / 720 160 / 160
Output Total 2550 / 2550 2475 / 2475 5000 / 5000
Balance -2310 / -2310 -1755 / -1755 -4840 / -4840
--- NOTE | 2024-12-20 10:29 | CM ---
CM reviewed- pt maintains indep in room
CM consult for med pricing
Call with [facility] [place] [phone]
Jardiance 10mg QD and Farxiga 10 mg QD same costs
30 day retail- $16
90 day mail order- $40
TT/Dr Ngo/cardio
Discharge Disposition- home, no needs anticipated
[2024-12-20] MEDS: FARXIGA 10 MG PO (11:19)
[2024-12-20 11:41] LABS: Albumin 2.84 g/dL (3.75-5.01); Alpha 1 Globulin 0.33 g/dL (0.19-0.46); Alpha 2 Globulin 0.69 g/dL (0.48-1.05); SPEP IFE Reflex IFE Done; Total Protein-Electrophoresis 6.3 g/dL (6.3-8.2)
[2024-12-20 11:46] LABS: IgA 671 mg/dL (68-408); IgG 1389 mg/dL (768-1632); IgM 85 mg/dL (35-263)
--- NOTE | 2024-12-20 11:58 | W.PN.HOSP.TC ---
Today's Communication/Plan
-
Renal Bx today
Labs in am
Assessment / Plan
Assessment / Plan
'HPI: 59 yo M with PMH of RCC s/p partial L nephrectomy 2021, history of lymphedema of RLE due to R groin resection, daily ETOH and tobacco use who presents to [facility] for evaluation of progressive B/L LE edema. He reports he has had some chronic RLE
edema since his R groin LN resection. He then was admitted and treated for cellulitis 07/2024. He reports ~1-2 months ago he had a respiratory infection and was taking dayquil/nyquil. He reports since then he has had progressive LE edema of both legs
into thighs, scrotum, and abdomen. He has also noted rash of legs, which is pruritic. He has been given several courses of abx and steroids. He also was started on po lasix and dose was uptitrated recently to 3x per day without improvement. PCP
ordered abd US as well as CXR and peripheral US which were completed yesterday. CXR showed B/L pleural effusions and patient was recommended coming to ER. He states he smokes 1/3-1/2 ppd and drinks 4-5 beers daily. '
On examination awake alert he does not remember what happened he last remembers going to sleep
Cardiovascular system S1-S2 appreciated, short systolic murmur at apex
Chest clear to auscultation
Skin diffuse maculopapular rash abdomen, bilateral lower extremities upper extremities, rash much better
#Acute heart failure with a reduced ejection fraction
#Small bilateral pleural effusions
12/16 Echo EF 35-40%, dilated right heart w/ RV hypokinesis, mod pulm HTN
Lasix 80 mg IV twice daily changed to 80 mg PO daily.
Continue on losartan 100 mg mg daily, started on Toprol XL 25 mg daily, Aldactone 12.5 mg daily
Patient will need cardiac catheterization, either as inpatient or outpatient
Weight much better
# Nephrotic range proteinuria
#Hematuria
#History of renal cell carcinoma status post partial left nephrectomy 2021
IR could not do biopsy 12/19/24-because patient was moving around too manage and uncooperative- Will attempt again 12/20/24.
Follow-up on serologies
#New maculopapular rash on abdomen and right upper lateral thigh
Patient was taking amoxicillin from 12/07 - 12/14
noticed this rash on 12/14
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
Status post skin biopsy by surgeon 12/19/24-Path pending.
Rash much better
#Chronic rash on posterior thighs
Status post multiple courses of antibiotics and steroid cream outpatient
Rash behind knee could be eczema -recommend outpatient follow-up with Derm-I encouraged to schedule an appointment now
#Essential hypertension
Continue losartan, metoprolol, Lasix as above
#Bilateral lower extremity edema
#Chronic right lower extremity edema since right groin lymph node resection
Lower extremity Dopplers are negative
#Small volume ascites
# Hepatomegaly
Suspect secondary to alcohol use
#Daily alcohol use
Drinks 4�beers daily
Monitor for withdrawal
Thiamine
#Cigarette /nicotine dependency
Nicotine cessation counseling
Nicotine patch as needed
#Hyponatremia
#Obesity due to excess calories
#DVT prophylaxis�subcu Lovenox-to be held as patient is going for renal biopsy.
#Full code
Discussed with at bed side
Discussed with nursing
Discussed with Nephrology.
called ( So I did not)
Anticipated Discharge: 24 - 48 hours
Subjective/Interval History
-
Date of Service: December 20, 2024
Objective Data
-
Labs:
Laboratory Results
12/20/24
06:12
Hgb 14.3
Sodium 136
Potassium 3.5
Chloride 100
Carbon Dioxide 29
BUN 30 H
Creatinine 1.0
Glucose 92
Calcium 8.7
Vital Signs:
Vital Signs
Temp Pulse Resp BP Pulse Ox
97.6 F 64 16 133/77 97
12/20/24 08:24 12/20/24 08:24 12/20/24 08:24 12/20/24 08:24 12/20/24 08:24
I&O
12/19/24 12/20/24 12/21/24
06:59 06:59 06:59
Intake Total 720 / 720 160 / 160
Output Total 2475 / 2475 5000 / 5000
Balance -1755 / -1755 -4840 / -4840
[2024-12-20 12:15] LABS: Rheumatoid Agglutinin Less Than 10 IU (<10 IU)
--- NOTE | 2024-12-20 12:50 | W.PN.NEPH.PH ---
Today's Communication / Plan
-
for renal biopsy today
follow up h/h post procedure
Assessment/Plan
-
IMP:
Acute heart failure with a reduced ejection fraction
Small bilateral pleural effusions
12/16 Echo EF 35-40%, dilated right heart w/ RV hypokinesis, mod pulm HTN
Nephrotic range Proteinuria
Micro Hematuria
History of renal cell carcinoma status post partial left nephrectomy 2021
Pruritic rash on bilateral legs, abdomen, posterior thighs and gluteal folds Status post multiple courses of antibiotics and steroids outpatient
Bilateral lower extremity edema
Chronic right lower extremity edema since right groin lymph node resection
Small volume ascites
Hepatomegaly
Daily alcohol use
Cigarette nicotine dependency
Hyponatremia
Obesity due to excess calories
Plan:
For renal biopsy today,was aborted yesterday due to patient disruption after anesthesia in IR
follow h/h post
A/w new CHF, echo noted low EF
also nephrotic range proteinuria 6.2gm/gm of cr, 24hr urine 3.7gm
mild microhematuria with known RCC partial nephrectomy
renal US non acute
serologies : negative and paraprotein w/u notes no M spike
gen itchy body rash not seem typical of vasculitis, no eosinophilia noted, agree with getting skin biopsy
continues with lasix 80mg po daily
Titrate losartan up as BP can tolerate
cr seem to be normal range
need to quit smoking, ETOH
Also avoid heavy protein diet
low salt diet and FR 48ounces/day
-
-
Date of Service: December 20, 2024
CC / HPI / ROS
-
Chief Complaint:
nephrotic proteinuria
History of Present Illness:
cr stable at 1
Hemodynamically stable
Status post skin punch biopsy
Review of Systems:
no cp , sob better
Weights down
still with sig scrotal edema
Profound global rash
Grossly nonoliguric in excess of 3.5 L
Labs
-
Labs:
WBC 4.3 10^3/uL (4.8-10.8) L 12/19/24 08:41
RBC 5.01 10^6/uL (4.70-6.10) 12/19/24 08:41
Hgb 14.3 g/dL (13.0-18.0) 12/20/24 06:12
Hct 45.7 % (39.0-52.0) 12/19/24 08:41
Plt Count 208 10^3/uL (130-400) 12/19/24 08:41
Sodium 136 mmol/L (135-145) 12/20/24 06:12
Potassium 3.5 mmol/L (3.5-5.1) 12/20/24 06:12
Chloride 100 mmol/L (98-107) 12/20/24 06:12
Carbon Dioxide 29 mmol/L (22-30) 12/20/24 06:12
BUN 30 mg/dl (9-20) H 12/20/24 06:12
Creatinine 1.0 mg/dL (0.7-1.3) 12/20/24 06:12
eGFR > 60.00 12/20/24 06:12
Glucose 92 mg/dl (70-99) 12/20/24 06:12
Calcium 8.7 mg/dl (8.4-10.2) 12/20/24 06:12
Phosphorus 5.0 mg/dl (2.5-4.5) H 12/19/24 08:41
Kxo-X-Yskrwjemxyh Pept 47872 pg/ml 12/15/24 22:48
Albumin 3.7 g/dl (3.5-5.0) 12/19/24 08:41
Physical Exam
-
Vital Signs:
Vital Signs
Temp Pulse Resp BP Pulse Ox
98.2 F 84 17 136/69 98
12/20/24 11:35 12/20/24 11:35 12/20/24 11:35 12/20/24 11:35 12/20/24 11:35
Cardiovascular:: Regular rate and rhythm
Respiratory:: Bilateral: CTA
Lung Excursion:: Normal
Abdomen:: Nontender and Soft
Extremity Edema:: +3: Bilateral:
Lenz Catheter: No
Other Findings::
scrotal edema noted
--- NOTE | 2024-12-20 14:00 | PTCARENOTE ---
Patient sent to IR for Kidney biopsy at 1400.
--- NOTE | 2024-12-20 17:00 | PTCARENOTE ---
Pt received from interventional radiology via stretcher. Transport was w/o incident. Pt is awake and alert. VSS, Pt is afebrile. Pt's kidney biopsy site w/ bandaid intact, clean and dry. Pt instructed on Dr's orders to remain on strict bedrest for a
total of 6 hours post biopsy. Pt oriented to new hosp. environment. Pt verbalized understanding of instructions. Call vargas within reach.
[2024-12-20] MEDS: ATARAX PO (20:20)
[2024-12-20 20:37] LABS: Hematocrit 47.2 % (39.0-52.0); Hemoglobin 15.8 g/dL (13.0-18.0)
[2024-12-20] MEDS: MELATONIN 5 MG PO (21:56)
[2024-12-21 03:51] VITALS: BP 149/89
[2024-12-21 05:59] VITALS: BMI 28.0
[2024-12-21 06:48] LABS: Hematocrit 44.1 % (39.0-52.0); Hemoglobin 15.1 g/dL (13.0-18.0); Mean Corp Hgb Conc. 34.2 g/dL (33.0-37.0); Mean Corpuscular Hgb 30.1 pg (27.0-31.0); Mean Corpuscular Volume 87.8 fL (80.0-94.0); Mean Platelet Volume 11.4 fL (7.4-10.4); Platelet Count 191 10^3/uL (130-400); Red Blood Cell Count 5.02 10^6/uL (4.70-6.10); Red Cell Dist. Width 13.5 % (11.5-14.5)
[2024-12-21 07:13] LABS: Blood Urea Nitrogen 27 mg/dl (9-20); Carbon Dioxide 27 mmol/L (22-30); Chloride 100 mmol/L (98-107); Estimated Creatinine Clearance 73 ml/min; Glucose 77 mg/dl (70-99); Potassium 4.2 mmol/L (3.5-5.1); Sodium 136 mmol/L (135-145); eGFR > 60.00
[2024-12-21 07:51] VITALS: BP 143/83
--- NOTE | 2024-12-21 09:56 | W.PN.NEPH.PH ---
Today's Communication / Plan
-
see plan
Assessment/Plan
-
IMP:
Acute heart failure with a reduced ejection fraction
Small bilateral pleural effusions
12/16 Echo EF 35-40%, dilated right heart w/ RV hypokinesis, mod pulm HTN
Nephrotic range Proteinuria
Micro Hematuria
History of renal cell carcinoma status post partial left nephrectomy 2021
Pruritic rash on bilateral legs, abdomen, posterior thighs and gluteal folds Status post multiple courses of antibiotics and steroids outpatient
Bilateral lower extremity edema
Chronic right lower extremity edema since right groin lymph node resection
Small volume ascites
Hepatomegaly
Daily alcohol use
Cigarette nicotine dependency
Hyponatremia
Obesity due to excess calories
Plan:
A/w new CHF, echo noted low EF
also nephrotic range proteinuria 6.2gm/gm of cr, 24hr urine 3.7gm
mild microhematuria with known RCC partial nephrectomy
renal US non acute
serologies and paraprotein w/u neg
s/p K biopsy on 12/20, hb stable
gen itchy body rash not seem typical of vasculitis, no eosinophilia noted, s/p skin biopsy
continues with lasix 80mg po daily, Spironolactone 12.5mg and losartan 100mg -titrated by cards
Farxiga added as well, cr so far stable
BP high end-may up titrate Spironolactone if needed
need to quit smoking, ETOH -pt motivated
Also avoid heavy protein diet
low salt diet and FR 48ounces/day
no objection to d/c from renal point, BMP in 1week
will call him with biopsy report and nephro f/u
d/w pt and on phone in detail
-
-
Date of Service: December 21, 2024
CC / HPI / ROS
-
Chief Complaint:
nephrotic proteinuria
History of Present Illness:
cr stable at 1
Hemodynamically stable
Status post skin punch biopsy 12/19
s/p K biopsy 12/20, hb stable
Review of Systems:
no cp , sob better
Weights down
improving scrotal edema
Profound global rash-fading
Labs
-
Labs:
WBC 4.0 10^3/uL (4.8-10.8) L 12/21/24 05:53
RBC 5.02 10^6/uL (4.70-6.10) 12/21/24 05:53
Hgb 15.1 g/dL (13.0-18.0) 12/21/24 05:53
Hct 44.1 % (39.0-52.0) 12/21/24 05:53
Plt Count 191 10^3/uL (130-400) 12/21/24 05:53
Sodium 136 mmol/L (135-145) 12/21/24 05:53
Potassium 4.2 mmol/L (3.5-5.1) 12/21/24 05:53
Chloride 100 mmol/L (98-107) 12/21/24 05:53
Carbon Dioxide 27 mmol/L (22-30) 12/21/24 05:53
BUN 27 mg/dl (9-20) H 12/21/24 05:53
Creatinine 1.1 mg/dL (0.7-1.3) 12/21/24 05:53
eGFR > 60.00 12/21/24 05:53
Glucose 77 mg/dl (70-99) 12/21/24 05:53
Calcium 9.0 mg/dl (8.4-10.2) 12/21/24 05:53
Phosphorus 5.0 mg/dl (2.5-4.5) H 12/19/24 08:41
Pxi-G-Iwwisjokfci Pept 23238 pg/ml 12/15/24 22:48
Albumin 3.7 g/dl (3.5-5.0) 12/19/24 08:41
Physical Exam
-
Vital Signs:
Vital Signs
Temp Pulse Resp BP Pulse Ox
97.9 F 66 18 143/83 100
12/21/24 07:51 12/21/24 07:51 12/21/24 07:51 12/21/24 07:51 12/21/24 07:51
Cardiovascular:: Regular rate and rhythm
Respiratory:: Bilateral: CTA
Lung Excursion:: Normal
Abdomen:: Nontender and Soft
Extremity Edema:: +1: Bilateral:
Lenz Catheter: No
Other Findings::
scrotal edema improving
skin rash fading
[2024-12-21] MEDS: COZAAR 100 MG PO (10:08)
[2024-12-21] MEDS: ATARAX 50 MG PO (10:09)
[2024-12-21] MEDS: LASIX 80 MG PO (10:09)
[2024-12-21] MEDS: VITAMIN B1 100 MG PO (10:09)
[2024-12-21] MEDS: FOLVITE 1 MG PO (10:09)
[2024-12-21] MEDS: TOPROL XL 25 MG PO (10:09)
[2024-12-21] MEDS: NICODERM TRANSDERMAL 14 MG TRANSDERM (10:10)
[2024-12-21] MEDS: MIRALAX 17 GRAMS PO (10:10)
[2024-12-21] MEDS: DESENEX/MITRAZOL/ZEASORB 1 APPLIC TOPICAL (10:13)
[2024-12-21] MEDS: HYDROPHOR 1 APPLIC TOPICAL (10:14)
[2024-12-21] MEDS: FARXIGA 10 MG PO (10:22)
[2024-12-21] MEDS: ALDACTONE 12.5 MG PO (10:43)
[2024-12-21] MEDS: NIZORAL 2% CREAM 1 APPLIC TOPICAL (11:00)
[2024-12-21 11:03] VITALS: BP 152/85
--- NOTE | 2024-12-21 13:28 | W.PN.HOSP.TC ---
Today's Communication/Plan
-
op renal bx f/u
GDMT
Assessment / Plan
Assessment / Plan
'HPI: 59 yo M with PMH of RCC s/p partial L nephrectomy 2021, history of lymphedema of RLE due to R groin resection, daily ETOH and tobacco use who presents to [facility] for evaluation of progressive B/L LE edema. He reports he has had some chronic RLE
edema since his R groin LN resection. He then was admitted and treated for cellulitis 07/2024. He reports ~1-2 months ago he had a respiratory infection and was taking dayquil/nyquil. He reports since then he has had progressive LE edema of both legs
into thighs, scrotum, and abdomen. He has also noted rash of legs, which is pruritic. He has been given several courses of abx and steroids. He also was started on po lasix and dose was uptitrated recently to 3x per day without improvement. PCP
ordered abd US as well as CXR and peripheral US which were completed yesterday. CXR showed B/L pleural effusions and patient was recommended coming to ER. He states he smokes 1/3-1/2 ppd and drinks 4-5 beers daily. '
On examination awake alert he does not remember what happened he last remembers going to sleep
Cardiovascular system S1-S2 appreciated, short systolic murmur at apex
Chest clear to auscultation
Skin diffuse maculopapular rash abdomen, bilateral lower extremities upper extremities, rash much better per patient
#Acute heart failure with a reduced ejection fraction
#Small bilateral pleural effusions
12/16 Echo EF 35-40%, dilated right heart w/ RV hypokinesis, mod pulm HTN
Lasix 80 mg IV twice daily changed to 80 mg PO daily.
Continue on losartan 100 mg mg daily, started on Toprol XL 25 mg daily, Aldactone 12.5 mg daily
Patient will need cardiac catheterization, as outpatient
Weight much better
# Nephrotic range proteinuria
#Hematuria
#History of renal cell carcinoma status post partial left nephrectomy 2021
s/p renal biopsy on 12/20/24.
Follow-up on serologies
#New maculopapular rash on abdomen and right upper lateral thigh
Patient was taking amoxicillin from 12/07 - 12/14
noticed this rash on 12/14
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
Status post skin biopsy by surgeon 12/19/24-Path pending-f/u results with primary doctor.
Rash much better
#Chronic rash on posterior thighs
Status post multiple courses of antibiotics and steroid cream outpatient
Rash behind knee could be eczema -recommend outpatient follow-up with Derm-I encouraged to schedule an appointment now
#Essential hypertension
Continue losartan, metoprolol, Lasix as above
#Bilateral lower extremity edema
#Chronic right lower extremity edema since right groin lymph node resection
Lower extremity Dopplers are negative
#Small volume ascites
# Hepatomegaly
Suspect secondary to alcohol use
#Daily alcohol use
Drinks 4�beers daily
Monitor for withdrawal
Thiamine
#Cigarette /nicotine dependency
Nicotine cessation counseling
Nicotine patch as needed
#Hyponatremia
#Obesity due to excess calories
#DVT prophylaxis�subcu Lovenox-to be held as patient is going for renal biopsy.
#Full code
More than 30 minutes spent in discharge including
Final examination of the patient
Summarizing hospital stay
Instructions for continuing care to all relevant caregivers
Preparation of discharge records, prescriptions, and referral forms
Total time spent (in minutes): 55
Anticipated Discharge: Today
Subjective/Interval History
-
Date of Service: December 21, 2024
states of itching which has improved.
Objective Data
-
Labs:
Laboratory Results
12/21/24
05:53
WBC 4.0 L
Hgb 15.1
Hct 44.1
Plt Count 191
Sodium 136
Potassium 4.2
Chloride 100
Carbon Dioxide 27
BUN 27 H
Creatinine 1.1
Glucose 77
Calcium 9.0
Vital Signs:
Vital Signs
Temp Pulse Resp BP Pulse Ox
97.6 F 62 20 152/85 98
12/21/24 11:03 12/21/24 11:03 12/21/24 11:03 12/21/24 11:03 12/21/24 11:03
I&O
12/20/24 12/21/24 12/22/24
06:59 06:59 06:59
Intake Total 160 / 160 540 / 540
Output Total 5000 / 5000 2400 / 2400
Balance -4840 / -4840 -1860 / -1860
--- NOTE | 2024-12-21 13:39 | W.DCSUMMARY ---
Discharge Summary
Discharge Data
Date of Admission: 12/15/24
Date of Discharge: 12/21/24
-
Pending Results: Yes
Additional Pending Results:
Renal biopsy results with nephrology
Skin biopsy results with primary doctor
Hospital Course
59-year-old male past medical history of renal cell carcinoma status post left partial nephrectomy, CLL with lymphedema, alcohol and tobacco use, this presented with complaints of progressive lower extremity edema and dyspnea on exertion. Patient
also complained of diffuse body swelling. Patient was found to be in heart failure exacerbation. Patient was evaluated by nephrology and cardiology and urology and interventional radiology. Patient underwent echocardiogram which showed EF of 35
to 40% with significantly elevated pulmonary artery systolic pressure. He has also noted rash of legs, which is pruritic. He has been given several courses of abx and steroids. He also was started on po lasix and dose was uptitrated recently to 3x
per day without improvement. PCP ordered abd US as well as CXR and peripheral US which were completed yesterday. CXR showed B/L pleural effusions and patient was recommended coming to ER. He states he smokes 1/3-1/2 ppd and drinks 4-5 beers daily.
Patient was started on aggressive IV diuresis with Lasix 80 mg twice daily. Patient was started on goal-directed medical therapy with losartan, Toprol Aldactone. Patient also with nephrotic range proteinuria. Nephrology was consulted and patient
underwent renal biopsy. Serology workup was negative so far. Patient with improvement in rash. Patient with significant urinary output and weight loss. IV diuresis was transitioned to oral Lasix 80 mg daily. Patient also with significant rash
lower extremity and was evaluated by general surgery and underwent skin biopsy. Skin biopsy results are pending does recommend to follow-up with primary doctor. Patient creatinine was stable. Post renal biopsy patient without any flank pain.
Hemoglobin was stable. Patient without any complaints of blood in the urine or flank pain no lightheaded or dizziness. Discussed with cardiology plan will be for outpatient further up titration of medical therapy and will defer ischemic evaluation
to cardiology upon outpatient evaluation.
Discharge Plan
-
Patient Disposition: Home (Routine Discharge)
Discharge Diagnosis/Procedures: Acute heart failure with a reduced ejection fraction
#Small bilateral pleural effusions
Nephrotic range proteinuria status post renal biopsy
new maculopapular rash on abdomen and right upper lateral thigh status post skin biopsy
Daily alcohol and tobacco use
Condition: Fair
Diet: 2 Gram Sodium, Restrict fluids to 48 oz and Other diet
Additional Diets: Also avoid heavy protein diet
Activity: As tolerated
Driving Restrictions: As prior to admission
Blood Work: cbc and bmp in 5-7 days via primary doctor.
Specialty Instructions: Weigh Daily- Call MD for wt gain/loss 3 lbs overnight/5 lbs in 1 week
Activity Restrictions/Additional Instructions:
Bilateral knee high Rodger wraps or compression stockings as tolerated; remove at bedtime; reapply every morning.
Elevate heels off bed with pillows.
Nizoral cream to feet/ankles, buttocks/coccyx twice a day x 10 days.
Miconazole powder to groin/scrotum, between toes twice a day.
Aquaphor ointment to dry skin twice a day.
Skin biopsy sites:
Your skin biopsy sites should close within the next few days by secondary intention. No specific wound care required and there are no restrictions.
You may follow-up with Dr. Valdez (general surgery) as needed.- follow up the skin biopsy results with primary doctor
Instructions: *PCP/Other Society Reporter Heart Failure Instructions
Referrals:
Evon Alamo PA-C [Specified Professional Personl] - 12/27/24 1:20 pm (You have a cardiology follow up appointment at the [place] office. Please call with questions. )
Jairo Mcneill, [Family Provider] - in less than 1 week (f/u the skin biopsy results )
Bhavesh Valdez MD [Active] - None
Nickie Falk MD [Active] - None (f/u the renal biopsy results. )
Jaior Rodríguez MD [Consulting Staff] - None
Prescriptions:
New
spironolactone 25 mg Tablet
12.5 mg PO DAILY 30 Days Qty: 15 0RF
losartan 100 mg Tablet
100 mg PO DAILY 30 Days Qty: 30 0RF
dapagliflozin propanediol [Farxiga] 10 mg Tablet
10 mg PO DAILY 30 Days Qty: 30.0 0RF
furosemide 80 mg Tablet
80 mg PO DAILY 30 Days Qty: 30 0RF
hydroxyzine HCl 25 mg Tablet
50 mg PO BID PRN (Reason: itching) 5 Days Qty: 20 0RF
metoprolol succinate 25 mg Tablet Extended Release 24 Hr
25 mg PO DAILY 30 Days Qty: 30 0RF
Discontinued
furosemide [Lasix] 20 mg Tablet
20 mg PO BID
Discharge Orders:
Discharge Patient (As Directed); Ordered 12/21/24
Ordered By: Rohan Ledezma
Discharge Date and Time
Print Language: [id number]
--- NOTE | 2024-12-21 14:46 | CM ---
MD entered order for discharge .
Spoke with pt he said his Aundrea will drive her home.
Offered VN he declined needs.
PLAN Home no needs
[2024-12-21] MEDS: PREVNAR 20 0.5 ML IM (14:49)
== END 2024-12-21 15:13 | disposition home or self-care (01) | DRG 291 ==
LOC: 2 SOUTH 23:01
PROVIDERS: Hospitalist; Internal Medicine Cardiovascular Disease; Physician Assistant; Radiology Vascular & Interventional Radiology; Specialist; ADMITTING PHYSICIAN Internal Medicine; ATTENDING PHYSICIAN Hospitalist; CONSULT PHYSICIAN Internal Medicine; CONSULT PHYSICIAN Specialist; EMERGENCY PHYSICIAN Student in an Organized Health Care Education/Training Program; FAMILY PHYSICIAN Family Medicine; OTHER PHYSICIAN Internal Medicine Cardiovascular Disease; OTHER PHYSICIAN Surgery
PROC: 0HBHXZX Excision of Right Upper Leg Skin, External Approach, Diagnostic (ICD-10-PCS; 2024-12-19)
PROC: 0TB03ZX Excision of Right Kidney, Percutaneous Approach, Diagnostic (ICD-10-PCS; 2024-12-20)
PROC: 3E0234Z Introduction of Serum, Toxoid and Vaccine into Muscle, Percutaneous Approach (ICD-10-PCS; 2024-12-21)
DX: I11.0 Hypertensive heart disease with heart failure (principal); I50.23 Acute on chronic systolic (congestive) heart failure; C91.10 Chronic lymphocytic leukemia of B-cell type not having achieved remission; R18.8 Other ascites; E87.1 Hypo-osmolality and hyponatremia; M79.89 Other specified soft tissue disorders; I42.6 Alcoholic cardiomyopathy; M54.9 Dorsalgia, unspecified; N50.89 Other specified disorders of the male genital organs; R16.0 Hepatomegaly, not elsewhere classified; N28.1 Cyst of kidney, acquired; R21 Rash and other nonspecific skin eruption; I45.10 Unspecified right bundle-branch block; F17.210 Nicotine dependence, cigarettes, uncomplicated; I27.20 Pulmonary hypertension, unspecified; F10.90 Alcohol use, unspecified, uncomplicated; I25.10 Atherosclerotic heart disease of native coronary artery without angina pectoris; R80.9 Proteinuria, unspecified; I70.0 Atherosclerosis of aorta; I34.81 Nonrheumatic mitral (valve) annulus calcification; E66.09 Other obesity due to excess calories; R31.29 Other microscopic hematuria; L29.9 Pruritus, unspecified; E88.09 Other disorders of plasma-protein metabolism, not elsewhere classified; R79.82 Elevated C-reactive protein (CRP); Z53.8 Procedure and treatment not carried out for other reasons; Z85.528 Personal history of other malignant neoplasm of kidney; Z90.5 Acquired absence of kidney; Z82.49 Family history of ischemic heart disease and other diseases of the circulatory system; Z68.28 Body mass index [BMI] 28.0-28.9, adult; Z23 Encounter for immunization
CPT/HCPCS: 88305; 50200; 71046; 76700; 76705; 76770; 76942; 80048; 80053; 80061; 80069; 81003; 81015; 81050; 82248; 82570; 82784; 83516; 83735; 83880; 84155; 84156; 84165; 84439; 84443; 84484; 85014; 85018; 85025; 85027; 85610; 85652; 86038; 86140; 86160; 86334; 86430; 90677; 93005; 93306; 93970; 96374; 99152; 99153; 99285; 99406; G0009; Q9950

== ENCOUNTER → 2025-01-11 08:53 | Outpatient (REF) | payer BC, SELFPAY | LOC: RCS 08:53 | PROVIDERS: ATTENDING PHYSICIAN Physician Assistant Medical; FAMILY PHYSICIAN Family Medicine | DX: I42.9 Cardiomyopathy, unspecified (principal) | CPT/HCPCS: 93017; 93350; Q9957 ==

== ENCOUNTER → 2025-05-29 09:13 | Outpatient (REF) | payer BC, SELFPAY | LOC: HWRCS 09:13 | PROVIDERS: ATTENDING PHYSICIAN Internal Medicine Cardiovascular Disease; FAMILY PHYSICIAN Family Medicine | DX: I42.8 Other cardiomyopathies (principal) | CPT/HCPCS: 93306 ==

== ENCOUNTER 2025-08-08 06:10 | Day surgery (SDC) | payer BC, SELFPAY ==
[2025-08-08 10:42] VITALS: BMI 27.3
[2025-08-08 10:43] VITALS: BP 145/68
[2025-08-08 16:27] VITALS: BP 114/65
[2025-08-08 16:30] VITALS: BP 112/75
[2025-08-08 16:45] VITALS: BP 139/84
[2025-08-08 17:00] VITALS: BP 161/88
== END 2025-08-08 17:20 | disposition home or self-care (01) ==
LOC: SDS 06:10
PROVIDERS: ATTENDING PHYSICIAN Internal Medicine Gastroenterology
DX: D12.3 Benign neoplasm of transverse colon (principal); D12.5 Benign neoplasm of sigmoid colon; K57.30 Diverticulosis of large intestine without perforation or abscess without bleeding; K64.0 First degree hemorrhoids; K22.89 Other specified disease of esophagus; K31.89 Other diseases of stomach and duodenum; K25.9 Gastric ulcer, unspecified as acute or chronic, without hemorrhage or perforation; R76.8 Other specified abnormal immunological findings in serum
CPT/HCPCS: 45390; 88305; 88342